=== PATIENT | female | born 1950 | race Caucasian/White ===

== ENCOUNTER 2018-10-10 06:16 | Inpatient (IN) ==
[2018-10-07 10:37] LABS: HEMATOCRIT 41.6 % (37.0-47.0); HEMOGLOBIN 13.2 g/dL (12.0-16.0); MCH 29.7 PG (27-31); MCHC 31.7 g/dL (33-37); MCV 93.5 FL (81-99); MPV 10.5 FL (7.4-10.4); RBC 4.45 XMIL (4.2-5.4); RDW 14.8 % (11.5-14.5); WBC 9.08 X1000 (4.8-10.8)
[2018-10-07 11:00] LABS: AGAP 14; BUN 13 mg/dL (8-22); CALCIUM 9.4 mg/dL (8.8-10.2); CHLORIDE 100 mmol/L (98-107); COSMO 288; CREATININE 0.7 mg/dL (0.5-0.9); ESTIMATED GFR > 60; GLUCOSE 151 mg/dL (70-104); POTASSIUM 4.3 mmol/L (3.5-5.1); SODIUM 143 mmol/L (136-145); TCO2 29 mmol/L (25-35)
[2018-10-10] MEDS ORDERED: LR 500 ML ONE (06:37)
[2018-10-10] MEDS ORDERED: KEFZOL 1 GM/D5W 1 GM/50 ML IVPB ONE (06:37)
[2018-10-10] MEDS ORDERED: DIPRIVAN 1% ONE ×2 (07:38→12:01)
[2018-10-10] MEDS ORDERED: ROBINUL ONE (07:59)
[2018-10-10] MEDS ORDERED: NEOSTIGMINE ONE (07:59)
[2018-10-10] MEDS ORDERED: SUFENTA ONE (08:49)
[2018-10-10] MEDS ORDERED: DECADRON ONE (09:18)
[2018-10-10] MEDS ORDERED: EPHEDRINE ONE (09:18)
[2018-10-10] MEDS ORDERED: ZOFRAN ONE (09:18)
[2018-10-10] MEDS ORDERED: NEO-SYNEPHRINE ONE (09:57)
[2018-10-10] MEDS: DILAUDID ONE ×4 (10:54→11:24)
--- NOTE | 2018-10-10 10:59 | OPERATIVE NOTE ---
PROCEDURE DATE: 10/10/2018 NAME OF PROCEDURE: Left modified radical mastectomy. SURGEON: Chuck Robertson MD. DYE CAN OPERATOR: Carlos Manuel Giordano RN. PREOPERATIVE DIAGNOSIS: Stage III cancer of the left breast. POSTOPERATIVE DIAGNOSIS: Stage III cancer of the left breast. INDICATIONS: A 67-year-old with a biopsy-proven carcinoma of the breast and palpable left axillary adenopathy. She desires modified mastectomy. DESCRIPTION OF PROCEDURE: After satisfactory general endotracheal anesthesia was achieved, the left arm was prepped into the field. We made an elliptical jam around the nipple areolar complex with an extension into the axilla. We incised the skin into the subcutaneous tissue, where we marked. We then used electrocautery to develop early superior and inferior flap. We then placed skin hooks superiorly and developed a superior flap to the clavicle. We then did skin hooks inferiorly, and developed a flap down to the rectus and serratus muscles. We then dissected from medial to lateral, taking the breast off the pectoralis major muscle. As we came to the edge of the pectoralis major, we went on the pectoralis minor. We then dissected the tissue, along the whole breadth of the pectoralis minor to be certain that we left no carmita tissue between the pectoralis major and pectoralis minor, the Seymour nodes. We then came to the edge of the pectoralis minor and into the axilla. We then identified the latissimus muscle laterally, and followed it from caudad to craniad until we reached the tendinous portion, we then identified the axillary vein laterally. We then dissected along the vein from lateral to medial. We dissected high into the axilla to get the level 3 nodes. We went as far medial as we could into the apex of the axilla to remove those nodes. We then dissected the branches of the vein inferiorly ligated with 3-0 silk ties and dividing it. We identified the thoracodorsal nerve, protected it from harm. We then dissected along the medial border of the serratus muscle. Palpable nodes were identified , and we dissected medial to them until we identified the long thoracic nerve. So at the very apex of the axilla, we clamped the tissue divided it, and swept the tissue from between the 2 nerves. We then dissected the tissue from the nerves until the thoracodorsal was identified, entering the latissimus, and the long thoracic was entering the serratus anterior muscles. The artery and vein to the latissimus was also preserved. All the carmita tissue including the palpable adenopathy was removed with the axillary contents. We then amputated the breast off the lateral chest wall. The specimen was handed off as left breast and axillary contents. Satisfactory hemostasis was achieved. We irrigated the chest wall and area of operation with warm saline. Again, hemostasis was satisfactory. We placed a Kale drain medially, bringing it out medially and placing it under the superior flap. The lateral drain went into the axilla. These were both secured to the skin with 2-0 silks. We then approximated the skin with brenda. Negative pressure was applied, thereby evacuating the space. Sterile dressings were applied. She tolerated it well. Was sent to the recovery room in satisfactory condition. ESTIMATED BLOOD LOSS: There was estimated to be 100 mL of blood loss. cc: Chuck Robertson MD MTDD
[2018-10-10] MEDS ORDERED: NORCO-10 ONE (11:40)
[2018-10-10] MEDS: LR 1,000 ML IV SCH (12:30)
[2018-10-10] MEDS ORDERED: ZOFRAN IV PRN (12:35)
[2018-10-10] MEDS: HUMALOG SUBQ SCH ×2 (14:11→16:52)
[2018-10-10] MEDS: NEURONTIN PO SCH ×3 (14:15→21:33)
[2018-10-10] MEDS: KEFZOL 1 GM/D5W 1 GM/50 ML IVPB IV SCH (15:37)
[2018-10-10] MEDS: NORCO-10 PO PRN ×2 (15:56→22:05)
[2018-10-10 20:07] LABS: URINE SOURCE CLEAN CATCH
[2018-10-10 20:11] LABS: BILIRUBIN URINE NEGATIVE (NEGATIVE); BLOOD URINE NEGATIVE (NEGATIVE); COLOR YELLOW; GLUCOSE URINE 300 mg/dL (NEGATIVE); KETONE URINE NEGATIVE (NEGATIVE); LEUKOCYTES URINE NEGATIVE (NEGATIVE); NITRITE URINE NEGATIVE (NEGATIVE); PH URINE 5.5; PROTEIN URINE 30 mg/dL (NEGATIVE); SP GRAVITY URINE 1.022; TURBIDITY URINE CLEAR (CLEAR); UR EPITHELIAL CELLS <10 /HPF (<10); URINE BACTERIA NEGATIVE /HPF; URINE RBC <10 /HPF (<10); URINE WBC <10 /HPF (<10); UROBILINOGEN URINE NORMAL (NORMAL)
--- NOTE | 2018-10-10 20:32 | GENERAL SURGERY PROGRESS NOTE ---
DATE: 10/10/2018 TIME: It is 4:30 in the afternoon. SUBJECTIVE: She is doing generally well. OBJECTIVE: Skin: She has a little hematoma under her superior flap. Vital signs: The blood pressure is a little bit high. PLAN: The plan will be to place an ice pack on her chest wall. We will check her hemoglobin in the morning and her other labs. Her pain relief seems to be adequate. cc: Chuck Robertson MD
[2018-10-10] MEDS: DILAUDID IV PRN (21:03)
[2018-10-10] MEDS ORDERED: INSULIN PEN NEEDLES ONE (21:30)
[2018-10-10] MEDS: COREG PO SCH (21:33)
[2018-10-10] MEDS: ANTIVERT PO SCH (21:33)
[2018-10-10] MEDS: LIPITOR PO SCH (21:33)
[2018-10-10] MEDS: PERIDEX MT SCH (21:33)
[2018-10-10] MEDS: LEVEMIR SUBQ SCH (21:57)
[2018-10-11] MEDS: KEFZOL 1 GM/D5W 1 GM/50 ML IVPB IV SCH (03:39)
[2018-10-11] MEDS: NORCO-10 PO PRN ×3 (03:44→21:46)
[2018-10-11] MEDS: LR 1,000 ML IV SCH ×2 (06:21→18:21)
[2018-10-11 06:36] LABS: BASO# 0.01 X1000 (0.0-0.2); BASO% 0.1 % (0.0-0.8); EOS# 0.01 X1000 (0.0-0.7); EOS% 0.1 % (0.0-10.0); HEMATOCRIT 34.8 % (37.0-47.0); LYMPH# 1.48 X1000 (1.2-3.4); LYMPH% 10.5 % (20.5-51.1); MCH 29.8 PG (27-31); MCHC 31.6 g/dL (33-37); MCV 94.3 FL (81-99); MONO# 0.76 X1000 (0.11-0.59); MONO% 5.4 % (1.7-9.3); MPV 11.1 FL (7.4-10.4); NEUT# 11.79 X1000 (1.4-6.5); NEUT% 83.9 % (42.2-75.2); PLT 212 X1000 (130-400); RBC 3.69 XMIL (4.2-5.4); RDW 14.3 % (11.5-14.5); WBC 14.05 X1000 (4.8-10.8)
[2018-10-11 06:41] LABS: AGAP 9; BUN 17 mg/dL (8-22); CALCIUM 8.8 mg/dL (8.8-10.2); CHLORIDE 99 mmol/L (98-107); COSMO 289; CREATININE 0.8 mg/dL (0.5-0.9); ESTIMATED GFR > 60; GLUCOSE 216 mg/dL (70-104); SODIUM 141 mmol/L (136-145); TCO2 33 mmol/L (25-35)
[2018-10-11] MEDS: DILAUDID IV PRN ×2 (07:48→23:10)
[2018-10-11] MEDS: PERIDEX MT SCH ×2 (09:01→21:44)
[2018-10-11] MEDS: WELLBUTRIN XL PO SCH (09:02)
[2018-10-11] MEDS: PRILOSEC PO SCH (09:02)
[2018-10-11] MEDS: ASPIRIN PO SCH (09:03)
[2018-10-11] MEDS: ANTIVERT PO SCH ×2 (09:05→21:42)
[2018-10-11] MEDS: NEURONTIN PO SCH ×4 (09:05→21:43)
[2018-10-11] MEDS: VITAMIN D PO SCH (09:05)
[2018-10-11] MEDS: FERROUS SULFATE PO SCH (09:06)
[2018-10-11] MEDS: KLOR-CON PO SCH (09:06)
[2018-10-11] MEDS: ZYLOPRIM PO SCH (09:06)
[2018-10-11] MEDS: LASIX PO SCH (09:06)
[2018-10-11] MEDS: VICON-C PO SCH (09:06)
[2018-10-11] MEDS: HUMALOG SUBQ SCH ×3 (09:07→18:06)
[2018-10-11] MEDS: COREG PO SCH ×2 (09:07→21:42)
[2018-10-11] MEDS: LIPITOR PO SCH (21:43)
[2018-10-11] MEDS: LEVEMIR SUBQ SCH (21:46)
--- NOTE | 2018-10-11 23:18 | GENERAL SURGERY PROGRESS NOTE ---
DATE: 10/11/2018 TIME: 1:15 p.m. SUBJECTIVE: Ms. Stinson is postop day 1 after left modified radical mastectomy. She is doing generally well. OBJECTIVE: She is afebrile, heart rate 68, blood pressure 138/47. The hematoma in the left superior flap is not changed. Her bandage is dry. She has had 117 mL out of drain #2, 70 out of drain #1. The drains appeared to be functioning satisfactorily. White count today 14,000, hemoglobin is 11, hematocrit 34.8. Chemistry is okay. Blood glucoses are satisfactory. PLAN: The plan will be to keep her until tomorrow and then discharge her tomorrow with her drains. She will return to see me on Sunday, the , and hopefully we will be able to remove her medial drain at that time. Dr. Oakley will be seeing her in the morning. I have discussed discharge plans with her and her niece. cc: Chuck Robertson MD
[2018-10-12] MEDS: NORCO-10 PO PRN (05:00)
[2018-10-12] MEDS: LR 1,000 ML IV SCH ×2 (05:01→08:35)
[2018-10-12] MEDS: DILAUDID IV PRN (06:13)
[2018-10-12 08:04] VITALS: BP 152/55
[2018-10-12] MEDS: KLOR-CON PO SCH (08:12)
[2018-10-12] MEDS: COREG PO SCH (08:13)
[2018-10-12] MEDS: VICON-C PO SCH (08:13)
[2018-10-12] MEDS: HUMALOG SUBQ SCH (08:13)
[2018-10-12] MEDS: LASIX PO SCH (08:13)
[2018-10-12] MEDS: PERIDEX MT SCH (08:13)
[2018-10-12] MEDS: NEURONTIN PO SCH (08:13)
[2018-10-12] MEDS: ANTIVERT PO SCH (08:13)
[2018-10-12] MEDS: ASPIRIN PO SCH (08:13)
[2018-10-12] MEDS: WELLBUTRIN XL PO SCH (08:13)
[2018-10-12] MEDS: VITAMIN D PO SCH (08:13)
[2018-10-12] MEDS: FERROUS SULFATE PO SCH (08:15)
[2018-10-12] MEDS: PRILOSEC PO SCH (08:15)
[2018-10-12] MEDS: ZYLOPRIM PO SCH (08:15)
--- NOTE | 2018-10-12 16:54 | GENERAL SURGERY PROGRESS NOTE ---
DATE: 10/12/2018 SUBJECTIVE: Doing well. Pain is well controlled. AMARI drain serosanguineous. No fever. No tachycardia overnight. OBJECTIVE: Vital signs: Blood pressure is 152/55. General: She is alert. Wounds are flat. There is no cellulitis. AMARI drains are serosanguineous with a modest amount of output. LABORATORY: Glucose 242. ASSESSMENT AND PLAN: 67-year-old female status post left modified radical mastectomy by Dr. Robertson. She is ready to go home. She was given a prescription for [place], Colace and Zofran. She has been educated on her drains. She will see Dr. Robertson in the office this week. cc: MD Chuck Tovar MD
== END 2018-10-12 12:00 | disposition home health service (06) | DRG 582 ==
LOC: OR 06:16 → 4N 06:16
PROVIDERS: ADMIT Surgery; ATTEND Surgery
CPT/HCPCS: 80048; 81001; 82948; 85025; 85027; 88309; 93005; 94761; 94799; A9270; J0690; J1100; J1170; J1815; J2370; J2405; J7120; XXXXX

== ENCOUNTER 2019-01-12 14:32 | Inpatient (IN) ==
[2019-01-12] MEDS ORDERED: ZOSYN 4.5 GM in NS 100 ML IV ONE ×2 (14:40→15:14)
[2019-01-12] MEDS ORDERED: VANCOMYCIN 1 GM/NS 1 GM/250 ML IVPB IV ONE ×3 (14:40→18:00)
[2019-01-12] MEDS ORDERED: NS 1,000 ML IV ONE ×2 (14:40→15:14)
[2019-01-12 14:46] LABS: ALLEN TEST YES; BE 8.9 mmoll (-3.0-3.0); BLOOD TYPE ARTERIAL; HCO3-(ACT) 31.9 mmoll (20.0-26.0); O2(CT) 14.2 mL/dL (15.0-23.0); O2HB 95.9 % (95.0-99.0); PCO2(98.6) 41 mmHg (35-45); PO2(98.6) 191 mmHg (60-100); SAMPLE BLOOD; SAO2 97.8 % (95.0-100.0); THB 10.2 g/dL (11.5-17.4); pH(98.6) 7.51 (7.35-7.45)
[2019-01-12 14:48] LABS: MODALITY NRB
--- NOTE | 2019-01-12 15:14 | Diag Imaging Result Doc PS360 ---
EXAM: CT HEAD W/O CONTRAST INDICATION: AMS, breast ca TECHNIQUE: This exam was performed using automated exposure control, adjustment of mA or kV according to patient size, and/or use of iterative reconstruction technique. COMPARISON: 07/31/2016 FINDINGS: There is patchy low attenuation in the periventricular and subcortical white matter suggesting moderate microangiopathy. It appears to have worsened at least somewhat during the interval. There is a stable small chronic lacunar infarct associated with the head of the caudate on the right. There is no definite acute infarct given the limited sensitivity of CT versus MRI. There is no discrete intracranial mass, mass effect, or intracranial hemorrhage. The surrounding soft tissues and bony structures are essentially unremarkable. IMPRESSION: Suggestion of moderate white matter microangiopathy that appears somewhat worse than the previous study in 2016. No definite acute intracranial pathology by CT. Electronically signed by Mason Malik 01/12/2019 3:12 PM
[2019-01-12] MEDS ORDERED: TYLENOL PO ONE (15:15)
--- NOTE | 2019-01-12 15:16 | Diag Imaging Result Doc PS360 ---
EXAM: CHEST-PORTABLE INDICATION: AMS< breast CA TECHNIQUE: One view COMPARISON: 07/24/2018 FINDINGS: There has been interval placement of a right chest port. The tip projecting over the lower SVC in the expected position. There are mild interstitial infiltrates bilaterally, mainly in the perihilar regions. This probably represents mild interstitial edema. There is no discrete pleural fluid collection or pneumothorax. There are stable CABG changes and cardiomegaly. IMPRESSION: Cardiomegaly and interstitial markings suggesting mild edema. Electronically signed by Mason Malik 01/12/2019 3:14 PM
[2019-01-12 15:49] LABS: BASO# 0.03 X1000 (0.0-0.2); BASO% 0.2 % (0.0-0.8); EOS# 0.14 X1000 (0.0-0.7); HEMATOCRIT 30.6 % (37.0-47.0); HEMOGLOBIN 9.4 g/dL (12.0-16.0); IMM GRAN# 0.06 X1000 (0.0-0.04); IMM GRAN% 0.4 % (0.0-0.5); LYMPH# 1.14 X1000 (1.2-3.4); LYMPH% 8.4 % (20.5-51.1); MCH 29.4 PG (27-31); MCHC 30.7 g/dL (33-37); MCV 95.6 FL (81-99); MONO# 1.17 X1000 (0.11-0.59); MONO% 8.6 % (1.7-9.3); MPV 9.3 FL (7.4-10.4); NEUT# 11.08 X1000 (1.4-6.5); NEUT% 81.4 % (42.2-75.2); PLT 398 X1000 (130-400); RDW 16.3 % (11.5-14.5); WBC 13.62 X1000 (4.8-10.8)
[2019-01-12 16:04] LABS: URINE SOURCE CATH
[2019-01-12 16:13] LABS: BILIRUBIN URINE NEGATIVE (NEGATIVE); BLOOD URINE NEGATIVE (NEGATIVE); COLOR YELLOW; GLUCOSE URINE NEGATIVE (NEGATIVE); KETONE URINE NEGATIVE (NEGATIVE); LEUKOCYTES URINE NEGATIVE (NEGATIVE); NITRITE URINE NEGATIVE (NEGATIVE); PROTEIN URINE TRACE mg/dL (NEGATIVE); SP GRAVITY URINE 1.011; TURBIDITY URINE CLEAR (CLEAR); UROBILINOGEN URINE NORMAL (NORMAL)
[2019-01-12 16:14] LABS: UR EPITHELIAL CELLS <10 /HPF (<10); URINE BACTERIA NEGATIVE /HPF; URINE RBC <10 /HPF (<10); URINE WBC <10 /HPF (<10)
[2019-01-12 16:16] LABS: AGAP 13; ALB/GLOB RATIO 1.1; ALBUMIN 3.1 g/dL (3.5-5.0); ALKALINE PHOSPHATASE 95 U/L (32-104); BUN 16 mg/dL (8-22); CALCIUM 8.5 mg/dL (8.8-10.2); CHLORIDE 99 mmol/L (98-107); COSMO 280; CREATININE 0.9 mg/dL (0.5-0.9); ESTIMATED GFR > 60; GLUCOSE 83 mg/dL (70-104); GOT 19 U/L (10-30); GPT 18 U/L (10-36); MAGNESIUM 1.9 mg/dL (1.5-2.7); POTASSIUM 4.7 mmol/L (3.5-5.1); SODIUM 140 mmol/L (136-145); TCO2 28 mmol/L (25-35); TOTAL BILIRUBIN 0.37 mg/dL (0.20-1.00)
[2019-01-12 16:23] LABS: INR 1.02; PROTIME 14.2 Seconds (11.0-16.0)
[2019-01-12 16:24] LABS: PTT 42.5 Seconds (22.3-41.8)
[2019-01-12 16:25] LABS: UR AMPHETAMINES QUAL NONE DETECTED (NONE DETECT); UR BARBITUATES QUAL NONE DETECTED (NONE DETECT); UR BENZODIAZEPIN QUAL NONE DETECTED (NONE DETECT); UR CANNABINOIDS QUAL NONE DETECTED (NONE DETECT); UR COCAINE QUAL NONE DETECTED (NONE DETECT); UR METHADONE QUAL NONE DETECTED (NONE DETECT); UR OPIATES QUAL PRESUMPTIVE POSITIVE (NONE DETECT); UR OXYCODONE QUAL PRESUMPTIVE POSITIVE (NONE DETECT); UR PCP QUAL NONE DETECTED (NONE DETECT)
--- NOTE | 2019-01-12 16:40 | PROVIDER DOCUMENTATION ---
This chart was entered by Jennifer Duran Scribe, acting as scribe for Tirso Waller MD. HPI-Respiratory General - General Chief Complaint: Shortness of Breath Stated Complaint: RESP DISTRESS Time Seen by Provider: 01/12/19 14:37 Source: patient, EMS Allergies/Adverse Reactions: Patient Allergies Allergy/AdvReac Type Severity Reaction Status Date / Time morphine Allergy Mild rash, Verified 01/12/19 15:01 swelling levofloxacin [From Levaquin] Allergy Unknown Verified 01/12/19 15:01 Home Medications: Home Medication List Medication Instructions Recorded Confirmed Last Taken Type ATORVAstatin [Lipitor] 40 mg PO QHS 07/29/13 01/12/19 11/18/18 22:00 History Allopurinol [Zyloprim] 300 mg PO QHS 07/29/13 01/12/19 11/18/18 22:00 History Bupropion HCl [Bupropion Xl] 300 mg PO QAM 07/29/13 01/12/19 11/18/18 08:00 History Cilostazol [Pletal] 100 mg PO BID 07/29/13 01/12/19 11/18/18 22:00 History Ferrous Sulfate [Iron] 325 mg PO QAM 07/29/13 01/12/19 11/18/18 22:00 History Insulin Aspart [Novolog] 15 unit SQ TID 07/29/13 01/12/19 11/18/18 22:00 History 15 units Insulin Detemir [Levemir] 25 unit SUBQ QHS 07/29/13 01/12/19 11/18/18 22:00 History 30 units Omeprazole [Prilosec] 40 mg PO QAM 07/29/13 01/12/19 11/19/18 05:30 History Cholecalciferol (Vitamin D3) 2,000 unit PO QAM 09/16/15 01/12/19 11/18/18 08:00 History [Vitamin D3] Gabapentin [Neurontin] 800 mg PO 4XDAY 09/16/15 01/12/19 11/18/18 22:00 History Aspirin 81 mg PO QAM 07/31/16 01/12/19 11/18/18 22:00 History Carvedilol [Coreg] 12.5 mg PO BID 07/24/18 01/12/19 11/19/18 05:30 History Folic Acid/Vit B Complex and C 400 mcg PO DAILY 07/24/18 01/12/19 11/18/18 08:00 History [Eql Super B Complex Tablet] Furosemide [Lasix] 40 mg PO DAILY 07/24/18 01/12/19 11/18/18 08:00 History Meclizine [Antivert] 12.5 mg PO BID 07/24/18 01/12/19 11/18/18 22:00 History Oxycodone/APAP 10 mg/325 mg 1 each PO TID 07/24/18 01/12/19 11/19/18 05:30 History [Percocet-10] Potassium Chloride E.r. [Klor-Con] 10 meq PO BID 10/07/18 01/12/19 11/18/18 08:00 History Cephalexin [Keflex] 500 mg PO 4XDAY 01/12/19 01/12/19 Unknown History Ondansetron HCl [Zofran] 4 mg PO Q8H PRN 01/12/19 01/12/19 Unknown History - History of Present Illness-Resp Nature of Presenting Problem: 68 y/o female presents to ED in respiratory distress onset just prior to arrival. EMS reports they received a call for AMS, lethargy, and possible stroke. EMS states O2 sats were in the 40s upon their arrival at the scene. Pt has hx breast cancer and is currently being treated by Dr. Robertson for ulcers on L foot. Pt is alert and oriented. Quality of Pain: reports: none Severity in ED: reports: severe Onset/Duration: reports: just prior to arrival Timing: reports: still present, improving Context: reports: other Exposure: reports: unknown cause Cough Quality/Degree: reports: no cough Episode Frequency: no prior episodes Current Respiratory Medication Therapy: Initiated see nurses note Modifying Factors: improves with: nothing Associated Symptoms: reports: shortness of breath, short of breath, other (respiratory distress; AMS; lethargic) Similar Symptoms Previously?: No Recently seen or treated by another doctor?: No Review of Systems - Adult - REVIEW OF SYSTEMS - ADULT Constitutional: reports: other (AMS; lethargic). denies: chills, fever Eyes: reports: no symptoms reported Ears, Nose, Mouth & Throat: reports: no symptoms reported Cardiovascular: denies: chest pain, palpitations Respiratory: reports: shortness of breath, other (respiratory distress). denies: cough Gastrointestinal: denies: abdominal pain, diarrhea, nausea, vomiting Genitourinary: reports: no symptoms reported Musculoskeletal: denies: back pain, joint pain Integumentary: reports: no symptoms reported Neurological: reports: other (AMS). denies: dizziness/vertigo, seizure Psychiatric: reports: no symptoms reported Endocrine: reports: no symptoms reported Hematologic/Lymphatic: reports: no symptoms reported Allergic/Immunologic: reports: no symptoms reported All Other Systems: Reviewed and Negative Past History - Adult - PAST MEDICAL HISTORY-ADULT Review of Records: reports: Old Records Reviewed, Nursing Assessment Review, Medications Reviewed Major Childhood Illnesses: reports: denies history Cardiovascular: reports: HTN Respiratory: reports: denies history Gastrointestinal: reports: denies history Obstetrical/Gynecological: reports: denies history, other (breast cancer) Genitourinary: reports: denies history Musculoskeletal: reports: denies history Neurological: reports: denies history Psychiatric: reports: depression Endocrine/Immune: reports: Diabetes Other Conditions: reports: denies history, MRSA - PRIOR SURGERIES/PROCEDURES Surgical/Procedure History: reports: other (aortic valve replacement) - IMMUNIZATION STATUS Childhood Immunizations: See Nurse Assessment Flu Vaccine: See Nurse Assessment - FAMILY HISTORY Family History: reviewed, not pertinent - SOCIAL HISTORY Smoking: quit greater than 1 year Substance Use: none/never Alcohol Use Frequency: never Living Situation: family Physical Exam-General - PHYSICAL EXAM-ADULT Initial Vital Signs Reviewed: Yes - CONSTITUTIONAL General Appearance: alert, moderate distress, other (ill-appearing) - EYES Eyes: PERRL/EOMI, pink conjunctivae - HEAD, EARS, NOSE, MOUTH & THROAT HENMT: normocephalic/atraumatic, moist mucous membranes, normal ENT inspection, other (alopecia) - NECK Neck: non-tender, full range of motion - RESPIRATORY Respiratory: chest non-tender, normal breath sounds, rhonchi (scattered), increased rate, other (port to R upper chest) - CARDIOVASCULAR Cardiovascular: tachycardia, systolic murmur (1/6), other (metallic click at apex) - GASTROINTESTINAL (ABDOMEN) Abdominal Exam: normal bowel sounds, non tender, soft, distended - MUSCULOSKELETAL Back Exam: normal inspection, no CVA tenderness Extremity: normal range of motion, non-tender, normal gait, swelling (2-3+ pitting edema of bilateral lower extremities), other (multiple open, necrotic wounds to interphalangeal joints of L foot; stage 2 pressure ulcer with yellow drainage to L medial heel). negative: pulse deficit - SKIN Integumentary: warm/dry, pallor, other (multiple open, necrotic wounds to interphalangeal joints of L foot; chronic stasis changes of the skin; stage 2 pressure ulcer with yellow drainage to L medial heel) - NEUROLOGIC Neurologic: grossly normal, motor weakness (RUE) - PSYCHIATRIC Psych/Mental Status: normal mood/affect, normal thought content, normal thought process - HEART Score HEART Score: History: Slightly Suspicious HEART Score: ECG: Normal HEART Score: Age: > or = 65 Years HEART Score: Risk Factors for Atherosclerotic Disease: 1 or 2 Risk Factors HEART Score: Troponin: < or = Normal Limit Total HEART Score:: 3 Progress - PLAN OF CARE/RESULTS Progress/Plan/Lab Results: Vital Signs - 8 hr 01/12/19 14:35 01/12/19 14:45 01/12/19 14:55 Temperature 103.1 F H Pulse Rate 97 H 116 H Respiratory Rate 26 H Blood Pressure 167/70 167/70 O2 Sat by Pulse Oximetry 100 80 L 01/12/19 15:10 01/12/19 15:30 01/12/19 15:34 Temperature Pulse Rate 96 H 96 H 96 H Respiratory Rate Blood Pressure 155/64 O2 Sat by Pulse Oximetry 97 93 L 01/12/19 16:00 Temperature Pulse Rate 93 H Respiratory Rate Blood Pressure O2 Sat by Pulse Oximetry Laboratory Results - last 24 hr 01/12/19 01/12/19 01/12/19 14:38 15:20 15:20 WBC 13.62 H RBC 3.20 L Hgb 9.4 L Hct 30.6 L MCV 95.6 MCH 29.4 MCHC 30.7 L RDW Std Deviation 16.3 H Plt Count 398 MPV 9.3 Immature Gran % (Auto) 0.4 Neut % (Auto) 81.4 H Lymph % (Auto) 8.4 L [place] % (Auto) 8.6 Eos % (Auto) 1.0 Baso % (Auto) 0.2 Immature Gran # (Auto) 0.06 H Neut # (Auto) 11.08 H Lymph # (Auto) 1.14 L [place] # (Auto) 1.17 H Eos # (Auto) 0.14 Baso # (Auto) 0.03 PT INR PTT (Actin FS) Specimen Type ARTERIAL Sample Site R RADIAL pH 7.51 H pCO2 41 pO2 191 H HCO3 31.9 H Base Excess 8.9 H Oxyhemoglobin 95.9 ABG O2 Sat (Calculated) 14.2 L ABG O2 Saturation 97.8 ABG Carboxyhemoglobin 0.90 ABG Methemoglobin 1.0 Erasto Test YES A-a O2 Difference 471.0 Total Hemoglobin 10.2 L Lactate 0.90 Liter Flow 15.0 Blood Gas Modality NRB FiO2 % 100.0 Sodium Potassium Chloride Carbon Dioxide Anion Gap BUN Creatinine Estimated GFR/1.73 m2 BUN/Creatinine Ratio Glucose Calculated Osmolality Calcium Magnesium Total Bilirubin AST ALT Alkaline Phosphatase Ammonia 19 Troponin T [id number]-Agmormclppl Pept Total Protein Albumin Globulin Albumin/Globulin Ratio Plasma Lactate TSH Urine Source Urine Color Urine Turbidity Urine pH Ur Specific [place] Urine Protein Ur Glucose (Stick) Ur Ketones (Stick) Urine Blood Urine Nitrite Urine Bilirubin Urobilinogen Dipstick Urine Leukocytes Urine WBC (Auto) Urine RBC (Auto) U Epithel Cells (Auto) Urine Bacteria (Auto) Urine Opiates Screen Ur Oxycodone Screen Ur Methadone, Qual Ur Barbiturates Screen Ur Phencyclidine Scrn Ur Amphetamines Screen U Benzodiazepines Scrn Urine Cocaine Screen U Cannabinoids Screen Blood Type Antibody Screen 01/12/19 01/12/19 01/12/19 15:20 15:20 15:20 WBC RBC Hgb Hct MCV MCH MCHC RDW Std Deviation Plt Count MPV Immature Gran % (Auto) Neut % (Auto) Lymph % (Auto) [place] % (Auto) Eos % (Auto) Baso % (Auto) Immature Gran # (Auto) Neut # (Auto) Lymph # (Auto) [place] # (Auto) Eos # (Auto) Baso # (Auto) PT INR PTT (Actin FS) Specimen Type Sample Site pH pCO2 pO2 HCO3 Base Excess Oxyhemoglobin ABG O2 Sat (Calculated) ABG O2 Saturation ABG Carboxyhemoglobin ABG Methemoglobin Erasto Test A-a O2 Difference Total Hemoglobin Lactate Liter Flow Blood Gas Modality FiO2 % Sodium 140 Potassium 4.7 Chloride 99 Carbon Dioxide 28 Anion Gap 13 BUN 16 Creatinine 0.9 Estimated GFR/1.73 m2 > 60 BUN/Creatinine Ratio 18 Glucose 83 Calculated Osmolality 280 Calcium 8.5 L Magnesium 1.9 Total Bilirubin 0.37 AST 19 ALT 18 Alkaline Phosphatase 95 Ammonia Troponin T [id number]-Ktjcxodwijx Pept 1454 H Total Protein 6.0 L Albumin 3.1 L Globulin 2.9 Albumin/Globulin Ratio 1.1 Plasma Lactate 1.1 TSH Urine Source Urine Color Urine Turbidity Urine pH Ur Specific [place] Urine Protein Ur Glucose (Stick) Ur Ketones (Stick) Urine Blood Urine Nitrite Urine Bilirubin Urobilinogen Dipstick Urine Leukocytes Urine WBC (Auto) Urine RBC (Auto) U Epithel Cells (Auto) Urine Bacteria (Auto) Urine Opiates Screen Ur Oxycodone Screen Ur Methadone, Qual Ur Barbiturates Screen Ur Phencyclidine Scrn Ur Amphetamines Screen U Benzodiazepines Scrn Urine Cocaine Screen U Cannabinoids Screen Blood Type Antibody Screen 01/12/19 01/12/19 01/12/19 15:20 15:20 15:20 WBC RBC Hgb Hct MCV MCH MCHC RDW Std Deviation Plt Count MPV Immature Gran % (Auto) Neut % (Auto) Lymph % (Auto) [place] % (Auto) Eos % (Auto) Baso % (Auto) Immature Gran # (Auto) Neut # (Auto) Lymph # (Auto) [place] # (Auto) Eos # (Auto) Baso # (Auto) PT 14.2 INR 1.02 PTT (Actin FS) 42.5 H Specimen Type Sample Site pH pCO2 pO2 HCO3 Base Excess Oxyhemoglobin ABG O2 Sat (Calculated) ABG O2 Saturation ABG Carboxyhemoglobin ABG Methemoglobin [place] Test A-a O2 Difference Total Hemoglobin Lactate Liter Flow Blood Gas Modality FiO2 % Sodium Potassium Chloride Carbon Dioxide Anion Gap BUN Creatinine Estimated GFR/1.73 m2 BUN/Creatinine Ratio Glucose Calculated Osmolality Calcium Magnesium Total Bilirubin AST ALT Alkaline Phosphatase Ammonia Troponin T < 0.010 [id number]-P-Llxutdbuwvm Pept Total Protein Albumin Globulin Albumin/Globulin Ratio Plasma Lactate TSH 0.74 Urine Source Urine Color Urine Turbidity Urine pH Ur Specific [place] Urine Protein Ur Glucose (Stick) Ur Ketones (Stick) Urine Blood Urine Nitrite Urine Bilirubin Urobilinogen Dipstick Urine Leukocytes Urine WBC (Auto) Urine RBC (Auto) U Epithel Cells (Auto) Urine Bacteria (Auto) Urine Opiates Screen Ur Oxycodone Screen Ur Methadone, Qual Ur Barbiturates Screen Ur Phencyclidine Scrn Ur Amphetamines Screen U Benzodiazepines Scrn Urine Cocaine Screen U Cannabinoids Screen Blood Type Antibody Screen 01/12/19 01/12/19 01/12/19 15:20 15:40 15:40 WBC RBC Hgb Hct MCV MCH MCHC RDW Std Deviation Plt Count MPV Immature Gran % (Auto) Neut % (Auto) Lymph % (Auto) [place] % (Auto) Eos % (Auto) Baso % (Auto) Immature Gran # (Auto) Neut # (Auto) Lymph # (Auto) [place] # (Auto) Eos # (Auto) Baso # (Auto) PT INR PTT (Actin FS) Specimen Type Sample Site pH pCO2 pO2 HCO3 Base Excess Oxyhemoglobin ABG O2 Sat (Calculated) ABG O2 Saturation ABG Carboxyhemoglobin ABG Methemoglobin [place]asto Test A-a O2 Difference Total Hemoglobin Lactate Liter Flow Blood Gas Modality FiO2 % Sodium Potassium Chloride Carbon Dioxide Anion Gap BUN Creatinine Estimated GFR/1.73 m2 BUN/Creatinine Ratio Glucose Calculated Osmolality Calcium Magnesium Total Bilirubin AST ALT Alkaline Phosphatase Ammonia Troponin T Phb-[id number]-Vzmxpbvubmj Pept Total Protein Albumin Globulin Albumin/Globulin Ratio Plasma Lactate TSH Urine Source CATH Urine Color YELLOW Urine Turbidity CLEAR Urine pH 5.0 Ur Specific [place] 1.011 Urine Protein TRACE A Ur Glucose (Stick) NEGATIVE Ur Ketones (Stick) NEGATIVE Urine Blood NEGATIVE Urine Nitrite NEGATIVE Urine Bilirubin NEGATIVE Urobilinogen Dipstick NORMAL Urine Leukocytes NEGATIVE Urine WBC (Auto) <10 Urine RBC (Auto) <10 U Epithel Cells (Auto) <10 Urine Bacteria (Auto) NEGATIVE Urine Opiates Screen PRESUMPTIVE POSITIVE A Ur Oxycodone Screen PRESUMPTIVE POSITIVE A Ur Methadone, Qual NONE DETECTED Ur Barbiturates Screen NONE DETECTED Ur Phencyclidine Scrn NONE DETECTED Ur Amphetamines Screen NONE DETECTED U Benzodiazepines Scrn NONE DETECTED Urine Cocaine Screen NONE DETECTED U Cannabinoids Screen NONE DETECTED Blood Type O NEGATIVE Antibody Screen NEGATIVE Orders Category Date Time Status Finger Stick Blood Sugar (ED) DIRECTED Care 01/12/19 14:38 Active [place] Insertion ORDERED Care 01/12/19 14:38 Active Nursing- Obtain EKG once Care 01/12/19 14:38 Active OK to use Port-A-Cath ORDERED Care 01/12/19 14:40 Active Saline Loc NOW Care 01/12/19 14:38 Active CHEST-PORTABLE [RAD] Stat Exams 01/12/19 14:[address] HEAD W/O CONTRAST [CT] Stat Exams 01/12/19 14:39 Completed ABG [RESP] Routine Lab 01/12/19 14:38 Completed AMMONIA [CHEM] Stat Lab 01/12/19 15:20 Completed BLOOD CULTURE [BLDCUL] Stat Lab 01/12/19 15:29 Results CBC WITH ELECTRONIC DIFF [HEME] Stat Lab 01/12/19 15:20 Completed COMPREHENSIVE METABOLIC PANEL [CHEM] Stat Lab 01/12/19 15:20 Completed LACTATE, PLASMA [CHEM] Stat Lab 01/12/19 15:20 Completed MAGNESIUM [CHEM] Stat Lab 01/12/19 15:20 Completed PRO B-NATRIURETIC PEPTIDE Stat Lab 01/12/19 15:20 Completed PROTIME WITH INR [COAG] Stat Lab 01/12/19 15:20 Completed PTT [COAG] Stat Lab 01/12/19 15:20 Completed TROPONIN T Stat Lab 01/12/19 15:20 Completed TSH Stat Lab 01/12/19 15:20 Completed TYPE & SCREEN [BBK] Stat Lab 01/12/19 15:20 Completed URINALYSIS W/POSS RFLX CULT [URINALYSIS] Stat Lab 01/12/19 15:40 Completed URINE DRUG SCREEN Stat Lab 01/12/19 15:40 Completed 0.9% Sodium Chloride Inj [Ns] 1,000 ml Med 01/12/19 14:40 Discontinued IV 999 mls/hr 0.9% Sodium Chloride Inj [Ns] 1,000 ml Med 01/12/19 15:14 Discontinued IV 999 mls/hr Acetaminophen [Tylenol] Med 01/12/19 15:15 Discontinued 1,000 mg PO NOW ONE Piperacillin/Tazobactam [Zosyn] 4.5 gm Med 01/12/19 14:40 Discontinued 0.9% Sodium Chloride Inj [Ns] 100 ml IV NOW Piperacillin/Tazobactam [Zosyn] 4.5 gm Med 01/12/19 15:14 Discontinued 0.9% Sodium Chloride Inj [Ns] 100 ml IV NOW Vancomycin 1 gm/Ns Med 01/12/19 14:40 Discontinued 1 gm in 250 ml IV NOW Vancomycin 1 gm/Ns Med 01/12/19 15:14 Discontinued 1 gm in 250 ml IV NOW EKG [EKG] Stat Ther 01/12/19 14:38 Ordered Result Diagrams: 01/12/19 15:20 01/12/19 15:20 - REASSESSMENT Reassessment #1 Time Reassessed: 16:37 Status: improving (Better after IVF resuscitation. Patient has severe sepsis, but normal lactate and no signs of shock. Sepsis may be due to PNE or Cellulitis/Gangrene of foot. Will give IV Zosyn and Vanco. Family at bedside now, labs/CT/CXR results shared and they understand and agree with disposition for admission) - EKG 1 Time of EKG reading by physician:: 14:44 EKG Read and Signed by:: Tirso Waller EKG Interpretation (*Must complete 3 of following elements*): Abnormal Rate: 96 Rhythm: NSR Spring: normal QRS: other (inferior infarct) [place] Interval: normal ST Wave: normal Comments: Artifact present. -Dr. Waller - XRAY 1 XRAY Study: Chest Impression: Abnormal (FINDINGS: There has been interval placement of a right chest port. The tip projecting over the lower SVC in the expected position. There are mild interstitial infiltrates bilaterally, mainly in the perihilar regions. This probably represents mild interstitial edema. There is no discrete pleural fluid collection or pneumothorax. There are stable CABG changes and cardiomegaly. IMPRESSION: Cardiomegaly and interstitial markings suggesting mild edema. Electronically signed by Mason Malik 01/12/2019 3:14 PM) - CT/MRI 1 CT Study: Head Impression: Normal (FINDINGS: There is patchy low attenuation in the periventricular and subcortical white matter suggesting moderate microangiopathy. It appears to have worsened at least somewhat during the interval. There is a stable small chronic lacunar infarct associated with the head of the caudate on the right. There is no definite acute infarct given the limited sensitivity of CT versus MRI. There is no discrete intracranial mass, mass effect, or intracranial hemorrhage. The surrounding soft tissues and bony structures are essentially unremarkable. IMPRESSION: Suggestion of moderate white matter microangiopathy that appears somewhat worse than the previous study in 2016. No definite acute intracranial pathology by CT. Electronically signed by Mason Malik 01/12/2019 3:12 PM) - CONSULTS/PCP/HOSPITALIST Notification #1 *Consult/PCP/Hospitalist*: MARGY Rubi for Dr. Eller, hospitalist Time Discussed: 16:32 Reason/Comments: Severe sepsis; AMS; Cellulitis and gangrene of L foot Consult Disposition: Admit Departure - Departure Date of Disposition Decision: 01/12/19 Time of Disposition Decision: 16:33 DIAGNOSIS: Severe sepsis, Gangrene of left foot, Cellulitis of foot, left, Metastatic breast cancer, On antineoplastic chemotherapy Altered mental status Qualifiers: Altered mental status type: unspecified Qualified Code(s): R41.82 - Altered mental status, unspecified Disposition: ADMITTED INPATIENT 09 Certified Medical Emergency: Emergent Condition: Fair Additional Freetext Instructions: ED Follow Up Instructions: You have been treated by a care provider in the Emergency Department. These instructions are being provided to you so you can have an understanding of how to care for yourself upon discharge. Upon discharge from the Emergency Department, you are responsible for making arrangements for follow-up care by a physician of your choice. Take all prescribed medications as directed. Return to the Emergency Department immediately for any new or worsening symptoms. You may call the Physician Referral phone number at [phone] to obtain a list of Physicians who are taking new patients. Referrals and Follow-Ups: Jay Arias MD [Primary Care Provider] - - Critical Care Note This patient required my direct & personal management of CC.: Yes Total Time (mins): 45 Critical Care Statement: This patient required my direct personal management to treat or rule out processes, the absence of which, could potentiallly result in sudden, clinically significant life or limb threatening deterioration. Attestation - Physician/ [place] Attestation Patient care was provided by Advanced Practice Provider:: No The physician spent face to face time with patient:: Yes Advanced Practice Provider documentation review:: Supervising physician onsite and consulted in the evaluation and care of this patient. The physician did have a face to face encounter with the patient. This chart was documented by the indicated scribe, (Jennifer Duran Scribe) and accurately reflects the services I performed and decisions made by me, Tirso Waller MD, as attested by the provider's signature.
[2019-01-12] MEDS ORDERED: VANCOMYCIN IV PER PHARMACY MISC SCH (17:15)
[2019-01-12] MEDS ORDERED: DUONEB (A & A) INH PRN (17:36)
--- NOTE | 2019-01-12 18:36 | HISTORY AND PHYSICAL ---
PRIMARY CARE PHYSICIAN: Dr. Arias. Her general surgeon is Dr. Chuck Robertson, oncologist is Joseline Escobar. CHIEF COMPLAINT: Unresponsive, respiratory distress. HPI: This is a 68-year-old female with a history of diabetes mellitus, metastatic breast cancer, hypertension, who presents to the emergency room via EMS after being found sitting up in a chair not responding by family members. EMS was called and reportedly on their arrival she was noted to have O2 saturations in the 40s. The patient does use oxygen at night. She stated she was not wearing oxygen at the time. The patient stated that over the last week she has felt a little more short of breath than normal with just generalized weakness. She has had body aches and chills consistent with a fever. She has had chills and body aches. She thought she might be febrile although she opted not to tell anyone knowing they would make her come to the hospital. She has had a little bit more of a cough although it has been nonproductive. The patient has bilateral ulcers to bilateral feet with the left having multiple necrotic wounds around her toes. She has a pressure ulcer to the left medial heel. She does have signs of chronic stasis to bilateral lower extremities for which she is seeing Dr. Chuck Robertson and is currently on Keflex. PAST MEDICAL HISTORY: 1. Metastatic breast cancer. 2. Hypertension. 3. Coronary artery disease. 4. Aortic valve replacement. 5. Diabetes mellitus type 2 insulin-dependent. 6. Dyslipidemia. 7. Peripheral vascular disease. 8. Systolic heart failure. PAST SURGICAL HISTORY: Cholecystectomy, hysterectomy, aortic valve replacement, coronary artery bypass graft, bilateral endarterectomy. SOCIAL HISTORY: She denies any alcohol, tobacco, or illicit drug use. ALLERGIES: Morphine and Levaquin. HOME MEDICATIONS: A list will be obtained by the nursing staff and once reviewed will restart as appropriate. REVIEW OF SYSTEMS: Discussed with the patient with pertinent positives stated in the HPI. She denied any syncope or dizziness, any chest pain, palpitations, a productive cough, any nausea, vomiting, diarrhea, constipation, black or bloody vomitus or stools, hematuria, dysuria, frequency, urgency. PHYSICAL EXAMINATION: GENERAL: This is a 68-year-old female who is lying in the bed in no distress. VITAL SIGNS: Blood pressure is 121/57 with heart rate of 93, respirations are 20, temperature is 101.1 degrees with O2 saturations that are now 97 to 93 percent on 3 L nasal cannula. HEENT: Head is normocephalic, atraumatic. Mucous membranes are moist. NECK: Supple. Trachea midline. CARDIOVASCULAR: She is tachycardic. Regular rate and rhythm. S1, S2 appreciated. She does have a 1/6 systolic murmur. She has metallic click can be heard of the aortic valve replacement. She does have bilateral lower extremity edema. PULMONARY: Breath sounds with scattered rhonchi and expiratory wheezes. Chest rises and fall symmetric respiration. She does have a port that is accessed to right upper chest. GASTROINTESTINAL: Abdomen soft, nontender, nondistended. Bowel sounds in all 4 quadrants. NEUROLOGIC: She is alert, oriented. SKIN: Warm and dry. She does have signs of venous stasis bilateral lower extremities. She does have a pressure ulcer to her left medial heel with necrotic wounds noted to interphalangeal joints of her left foot. LABS: WBC is 13.6 with hemoglobin 9.4, hematocrit 30.6 and platelets of 398,000. Sodium is 140, potassium 4.7, BUN 16, creatinine 0.9 with a glucose of 83. Urinalysis is essentially negative. Urine drug screen is presumptive positive for opiates and oxycodone. Blood cultures are pending. CT of the head revealed suggestion of moderate white matter microangiopathy that appears somewhat worse than study in 2016. No acute intracranial pathology. Chest x-ray revealed cardiomegaly and interstitial markings suggesting mild edema. ASSESSMENT AND PLAN: This is a 68-year-old female who is lying on the bed in the emergency room in no distress. 1. Sepsis. The patient received a fluid bolus in the emergency room. Blood cultures were obtained. She was given vancomycin and Zosyn. Will continue these dose per pharmacy. 2. Ulcers bilateral feet. The patient is followed by Dr. Robertson. We will consult him in the morning. We will continue with antibiotics as stated above. We will obtain a culture from her left heel as it is draining. Will consult wound therapy. 3. Acute hypoxemic respiratory failure. Supplemental oxygen, DuoNeb q.6 hours scheduled with q.2 hours p.r.n., antibiotics as stated. 4. Diabetes mellitus. Place on pattern blood glucose with sliding scale insulin. 5. History of hypertension. Identify her home medications and continue as appropriate. 6. History of metastatic breast cancer. 7. History of coronary artery disease aware. Continue medications. 8. Further treatments pending hospital course. Patient seen and examined by me face to face, all the laboratory, vitals signs and images were reviewed, patient presented to the emergency department with signs of sepsis, she has been seen by surgery department as an outpatient, she has bilateral feet ulcer that look infected and some necrotic areas, blood sugar looks fine, but will get an HbA1c, we will consult surgery, antibiotics, pain treatment, I agree with the SWITCH OPERATOR's assessment and plan, Lazaro Guzman MD. Dictated by MARGY Arias for Lazaro Frazier MD cc: MARGY Arias MD MTDD
[2019-01-12] MEDS ORDERED: PLETAL PO SCH (21:00)
[2019-01-12] MEDS: PERCOCET-10 PO PRN (21:50)
[2019-01-12] MEDS: ZYLOPRIM PO SCH (21:50)
[2019-01-12] MEDS: ZOSYN 4.5 GM in NS 100 ML IV SCH (21:51)
[2019-01-12] MEDS: HUMALOG SUBQ SCH (22:41)
[2019-01-12] MEDS: LEVEMIR SUBQ SCH (22:41)
[2019-01-13] MEDS: DUONEB (A & A) INH SCH ×5 (03:42→21:39)
[2019-01-13] MEDS: PERCOCET-10 PO PRN ×3 (06:51→20:05)
[2019-01-13] MEDS: HUMALOG SUBQ SCH ×4 (06:54→23:11)
[2019-01-13] MEDS: ZOSYN 4.5 GM in NS 100 ML IV SCH (06:54)
[2019-01-13] MEDS: TYLENOL PO PRN ×2 (06:54→23:08)
[2019-01-13] MEDS: PRILOSEC PO SCH (06:54)
[2019-01-13] MEDS ORDERED: PRILOSEC PO SCH (07:00)
[2019-01-13] MEDS ORDERED: INSULIN PEN NEEDLES ONE (07:15)
[2019-01-13 08:21] LABS: EOS# 0.19 X1000 (0.0-0.7); EOS% 1.3 % (0.0-10.0); HEMATOCRIT 28.3 % (37.0-47.0); HEMOGLOBIN 8.7 g/dL (12.0-16.0); IMM GRAN# 0.04 X1000 (0.0-0.04); IMM GRAN% 0.3 % (0.0-0.5); LYMPH% 3.4 % (20.5-51.1); MCH 29.5 PG (27-31); MCHC 30.7 g/dL (33-37); MCV 95.9 FL (81-99); MONO# 0.53 X1000 (0.11-0.59); MONO% 3.6 % (1.7-9.3); NEUT# 13.43 X1000 (1.4-6.5); NEUT% 91.4 % (42.2-75.2); PLT 354 X1000 (130-400); RBC 2.95 XMIL (4.2-5.4); RDW 16.5 % (11.5-14.5); WBC 14.69 X1000 (4.8-10.8)
[2019-01-13] MEDS: ASPIRIN PO SCH (08:29)
[2019-01-13] MEDS: COREG PO SCH ×2 (08:29→20:05)
[2019-01-13] MEDS: PLETAL PO SCH ×2 (08:29→20:05)
[2019-01-13 08:33] LABS: AGAP 12; ALB/GLOB RATIO 0.8; ALBUMIN 2.6 g/dL (3.5-5.0); ALKALINE PHOSPHATASE 81 U/L (32-104); BUN 15 mg/dL (8-22); CALCIUM 8.2 mg/dL (8.8-10.2); CHLORIDE 104 mmol/L (98-107); COSMO 289; CREATININE 0.9 mg/dL (0.5-0.9); ESTIMATED GFR > 60; GLUCOSE 147 mg/dL (70-104); GOT 17 U/L (10-30); GPT 15 U/L (10-36); POTASSIUM 4.1 mmol/L (3.5-5.1); SODIUM 143 mmol/L (136-145); TCO2 27 mmol/L (25-35); TOTAL BILIRUBIN 0.36 mg/dL (0.20-1.00); TOTAL PROTEIN 5.9 g/dL (6.3-8.3)
[2019-01-13 08:44] LABS: BANDS 10 % (0-1); LYMPHS 8 % (21-51); SEGS 82 % (42-75)
[2019-01-13] MEDS ORDERED: PERCOCET-10 PO SCH (09:00)
--- NOTE | 2019-01-13 11:08 | EKG Report ---
Test Performed on : 01/12/2019 2:41:58 PM Test Reason : SOB Blood Pressure : / mmHG Vent. Rate : 096 BPM Atrial Rate : 096 BPM P-R Int : 162 ms QRS Dur : 068 ms QT Int : 392 ms P-R-T Axes : 022 014 051 degrees QTc Int : 495 ms Normal sinus rhythm. Inferior infarct , age undetermined Abnormal ECG No previous ECGs available Unconfirmed Result
[2019-01-13] MEDS: LASIX PO SCH (11:52)
[2019-01-13] MEDS: FERROUS SULFATE PO SCH (11:52)
[2019-01-13] MEDS: WELLBUTRIN XL PO SCH (11:52)
--- NOTE | 2019-01-13 12:01 | PROGRESS NOTE ---
DATE: 01/13/2019 SUBJECTIVE: This patient is feeling better, but she has having episodes of fever, even though she has been placed on antibiotics. She received already some fluids in the emergency department, which have been stopped now. She has been placed on vancomycin and Zosyn. Infectious Disease Department has been consulted. Probably the antibiotics will be rotated. OBJECTIVE: Vital signs: Temperature 101.6, pulse 108, respiratory rate 18, blood pressure 126/54. Oxygen saturation 98% on 3 L of nasal cannula. HEENT: Head normocephalic, no trauma. PERRLA. Neck: Supple. No JVD. No masses. Central trachea. Chest: Clear to auscultation. No wheezing. No rales. Abdomen: Soft, nontender, nondistended. No hepatosplenomegaly. Extremities: She does have redness on her legs bilaterally, and probably some signs of venous stasis bilaterally as well. She has an ulcer to her left medial heel with necrotic wounds noted to the interphalangeal joints on her left foot. LABORATORY: WBC 14.6, hemoglobin 8.7, hematocrit 28.3, platelets 354,000. Sodium 143, potassium 4.1, chloride 104, bicarbonate 27, BUN 15, creatinine 0.9. Glucose 147, calcium 8.2, albumin 2.6. ASSESSMENT AND PLAN: 1. Sepsis. She already received some fluids. I will put the patient back on her home medications since the vital signs are stable except for the high temperature. Continue broad- spectrum antibiotics. Infectious Disease Department consulted. 2. Ulcers bilateral feet, this patient has been followed by Dr. Robertson as an outpatient. We consulted the Surgery Department. Continue with antibiotics. Culture has been obtained. 3. Acute hypoxemic respiratory failure. Continue with oxygen supplementation and DuoNeb scheduled and as needed. She seems to be breathing better. Continue with oxygen supplementation as well. 4. Type 2 diabetes. Continue pattern blood sugar and sliding scale insulin. 5. History of hypertension. For now, we will continue with same management. I have placed this patient back on some of her home medications. 6. History of metastatic breast cancer. Aware. 7. History of coronary artery disease, aware. Continue with home medications. cc: Lazaro Frazier MD
--- NOTE | 2019-01-13 12:36 | INFECTIOUS DISEASE CONSULT REP ---
DATE: 01/13/2019 CONCLUSION: 1. The patient has bilateral leg cellulitis and on the left foot, there is a large superficial ulcer. The patient has told me that the leg cellulitis and the wound on the left foot are due to chemotherapy she is taking for breast cancer. 2. 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 RECOMMENDATIONS: I agree with treating the patient with vancomycin. I have substituted cefepime for Zosyn. Culture from the leg is pending. I am ordering immunoglobulin levels. DISCUSSION: The patient for the past month has had bilateral leg cellulitis with formation of a large superficial wound on the left foot and some smaller wounds on both feet. The patient's left foot Gram stain shows no white blood cells, bacteria, or fungi. Blood cultures are pending. A culture from the left foot is also pending. Chest x-ray shows pulmonary edema. CT scan of the head shows microangiopathy. Creatinine is 0.9, GFR is greater than 60. Liver function studies are normal. Urinalysis shows no white cells or bacteria. PAST MEDICAL HISTORY/REVIEW OF SYSTEMS: Eyes and Ears: She does not have any problem hearing or seeing. Neck: No stiffness. Respiratory: No cough or shortness of breath. Cardiac: No chest pain or palpitations. Gastrointestinal: No nausea, vomiting, or diarrhea. Genitourinary: No dysuria or flank pain. Bones, Joints, Muscles: No joint swelling or muscle aching. Neurologic: No seizures and no recent loss of motor or sensory function. Endocrine: The patient is a diabetic, but she does not have thyroid disease. OBSTETRICAL/GYNECOLOGICAL HISTORY: Patient is a 1, para 1, AB 0. She has had a hysterectomy and tubal ligation. PREVIOUS HOSPITALIZATIONS AND OPERATIONS: The patient has had labor and delivery, a hysterectomy, a tubal ligation, laminectomy of the lower back, bifemoral artery bypass, placement of a right- sided Port-A-Cath, left breast mastectomy, a cholecystectomy, bilateral carotid endarterectomies each done twice according to the patient's sister, the patient has had an aortic valve replaced, and she has also had coronary artery bypass grafting. MEDICAL DISEASES: Positive for diabetes mellitus, hypertension, obesity, myocardial infarction, stroke, hyperlipidemia, aortic valve disease that resulted in aortic valve replacement, congestive heart failure, breast cancer with metastatic disease to lymph nodes for which she is getting chemotherapy, and finally hyperlipidemia. INFECTIOUS DISEASE HISTORY: Positive for pneumonia, urinary tract infection, and recurrent episodes of sinusitis. FAMILY HISTORY: Positive for hypertension, myocardial infarction, and cancer. SOCIAL HISTORY: [place] She is . She lives alone. She does not have pets. She is retired from working at [employer]. ALLERGIES: She is allergic to morphine and Levaquin. HOME MEDICATIONS: Include the following: Allopurinol, Lipitor, bupropion, Coreg, Keflex, Lasix, Neurontin, insulin, Antivert, Prilosec, Zofran, oxycodone, and potassium. PHYSICAL EXAMINATION: Vital Signs: Temperature is 101.6 degrees, pulse 108, respirations 18, blood pressure 126/54. General: This is an ill-appearing elderly female. She is in no acute distress. Head, Eyes, Ears, Nose, and Throat: The patient does not have any hair. There is no drainage from the nose or ears. She does not have any white patches on her tongue. Neck: The patient has bilateral incisions from her carotid endarterectomies. She does not have any pain when she moves her neck. Lungs: Clear to auscultation. Cardiovascular: Regular heart rate. No murmur. Abdomen: Soft and nontender. Extremities: Both legs are erythematous. The left leg has a large superficial ulcerated area a has beefy red tissue and. There was no drainage. Neurologic: The patient is awake. She can move her extremities. There is no tremor. Her sensation is intact to touch. Her memory as regarding her medical history is decreased. Thank you for the consult. cc: Magdi Brice MD
[2019-01-13] MEDS: NEURONTIN PO SCH ×3 (13:36→20:05)
[2019-01-13] MEDS: MAXIPIME 2 GM in NS 100 ML IV SCH (13:37)
--- NOTE | 2019-01-13 17:23 | GENERAL SURGERY CONSULTATION ---
DATE: 01/13/2019 REQUESTING PHYSICIAN: Hospitalist. REASON FOR CONSULTATION: Leg wound. HISTORY OF PRESENT ILLNESS: A 68-year-old female who was found unresponsive in respiratory distress by family members. She was brought to the emergency department. She is being currently worked up. She has improved significantly from this altered mental status and she is doing okay at this point. She is a patient of Dr. Hernandezs, [facility], for bilateral lower extremity wounds. She had previously been having Drawtex placed on but they have significantly dried out and now they have a Vashe wet-to-dry in place. She had been on antibiotics for this. Given her admission to the hospital, I was asked to weigh an opinion. Dr. Robertson is currently out of town. PAST MEDICAL HISTORY: 1. Metastatic breast cancer. 2. Hypertension. 3. Coronary artery disease. 4. Aortic valve replacement. 5. Diabetes mellitus. 6. Dyslipidemia. 7. Peripheral vascular disease. 8. Systolic heart failure. PAST SURGICAL: 1. Cholecystectomy. 2. Hysterectomy. 3. Aortic valve replacement. 4. Coronary artery disease with bypass graft. 5. Bilateral carotid endarterectomies. SOCIAL HISTORY: Denies alcohol, tobacco, illicit drugs. ALLERGIES: 1. Morphine. 2. Levaquin. HOME MEDICATIONS: Reviewed. FAMILY HISTORY: Reviewed with the patient and noncontributory. REVIEW OF SYSTEMS: A full 10 point review of systems obtained, negative as specified in HPI. PHYSICAL EXAMINATION: Vital Signs: The patient is currently afebrile. Her vital signs are stable. General: No acute distress. Alert, interactive female looks stated age. HEENT: Normocephalic, atraumatic. Pupils equal, round, reactive to light. Mucous membranes moist. Oropharynx benign. Neck: Supple. Trachea midline. Cardiovascular: Regular rate and rhythm. Lungs: Grossly clear. Abdomen: Soft, nontender, nondistended. Extremities: Erythema noted to the legs. Her wounds for the most part have dressings on them. Vascular: All extremities perfused. Neurologic: Grossly intact. Skin: As noted above. LABORATORY DATA: White blood cell count is 14, hematocrit 28, platelet count 354,000. ASSESSMENT AND PLAN: A 68-year-old female with multiple medical comorbidities, now with altered mental status with bilateral lower extremity leg wounds. 1. Multiple medical comorbidities currently being managed by the hospitalist service. 2. Altered mental status currently being managed by the hospitalist service. 3. Bilateral lower extremity feet ulcers. At this time, we will continue local wound care. We will have Dr. Robertson reassess when he comes back. Otherwise, continue current treatment. I appreciate the consult. cc: Gian Faulkner MD
[2019-01-13] MEDS: VANCOMYCIN 1,800 MG in NS 250 ML IV SCH (17:27)
[2019-01-13] MEDS: ZYLOPRIM PO SCH (20:05)
[2019-01-13] MEDS: LIPITOR PO SCH (20:05)
[2019-01-13] MEDS: LEVEMIR SUBQ SCH (20:06)
[2019-01-14] MEDS: MAXIPIME 2 GM in NS 100 ML IV SCH ×2 (01:23→13:27)
[2019-01-14] MEDS: PERCOCET-10 PO PRN ×3 (02:16→18:52)
[2019-01-14] MEDS: DUONEB (A & A) INH SCH ×4 (05:06→21:21)
[2019-01-14] MEDS: PRILOSEC PO SCH (06:41)
[2019-01-14] MEDS: HUMALOG SUBQ SCH ×4 (06:41→20:46)
[2019-01-14 07:13] LABS: BASO# 0.01 X1000 (0.0-0.2); BASO% 0.1 % (0.0-0.8); EOS# 1.04 X1000 (0.0-0.7); EOS% 8.3 % (0.0-10.0); HEMATOCRIT 27.8 % (37.0-47.0); HEMOGLOBIN 8.5 g/dL (12.0-16.0); IMM GRAN# 0.05 X1000 (0.0-0.04); IMM GRAN% 0.4 % (0.0-0.5); LYMPH# 0.91 X1000 (1.2-3.4); LYMPH% 7.2 % (20.5-51.1); MCH 29.4 PG (27-31); MCHC 30.6 g/dL (33-37); MCV 96.2 FL (81-99); MONO% 6.4 % (1.7-9.3); NEUT# 9.76 X1000 (1.4-6.5); NEUT% 77.6 % (42.2-75.2); PLT 372 X1000 (130-400); RBC 2.89 XMIL (4.2-5.4); RDW 16.6 % (11.5-14.5); WBC 12.57 X1000 (4.8-10.8)
[2019-01-14 07:28] LABS: AGAP 10; BUN 15 mg/dL (8-22); CALCIUM 8.5 mg/dL (8.8-10.2); CHLORIDE 103 mmol/L (98-107); COSMO 284; CREATININE 0.8 mg/dL (0.5-0.9); ESTIMATED GFR > 60; GLUCOSE 66 mg/dL (70-104); POTASSIUM 3.4 mmol/L (3.5-5.1); SODIUM 143 mmol/L (136-145); TCO2 30 mmol/L (25-35)
--- NOTE | 2019-01-14 08:55 | GENERAL SURGERY PROGRESS NOTE ---
DATE: 01/14/2019 SUBJECTIVE: Ms. Stinson is known to me from [facility]. OBJECTIVE: She is afebrile with stable hemodynamics. She is awake alert and oriented[place] [id number]. Her wounds were inspected and are a bit dried out. I would recommend we continue with Vashe gauze to the dried wounds to be changed twice a day. cc: Chuck Robertson MD
[2019-01-14] MEDS: WELLBUTRIN XL PO SCH (10:08)
[2019-01-14] MEDS: NEURONTIN PO SCH ×4 (10:09→20:27)
[2019-01-14] MEDS: PLETAL PO SCH ×2 (10:09→20:27)
[2019-01-14] MEDS: ASPIRIN PO SCH (10:09)
[2019-01-14] MEDS: COREG PO SCH ×2 (10:09→20:27)
[2019-01-14] MEDS: FERROUS SULFATE PO SCH (10:09)
[2019-01-14] MEDS: FOLIC ACID PO SCH (10:10)
[2019-01-14] MEDS: LASIX PO SCH (10:10)
--- NOTE | 2019-01-14 10:50 | PROGRESS NOTE ---
DATE: 01/14/2019 SUBJECTIVE: Patient lying in bed, resting quietly. No complaints voiced at this time. OBJECTIVE: Vital signs: Temperature 98 degrees, pulse 81, respirations 20, blood pressure 153/53, saturating 98% on O2 via nasal cannula. General: This is a 68-year-old female who is lying in the bed and answers questions appropriately. HEMNT: Normocephalic and atraumatic. Normal ENT inspection. Eyes: Pupils are equal, round, and reactive to light and accommodation. Neck: Normal inspection. Normal range of motion. Lungs: Clear to auscultation bilaterally with equal lung expansion and chest wall movement. Heart: With regular rate and rhythm. No murmurs, rubs, or gallops. Abdomen: Soft, nontender, nondistended. Bowel sounds are present x4 quadrants. Musculoskeletal: She is noted to have some mild redness to her legs bilaterally with venous stasis bilaterally as well. She has an ulcer to her left medial heel with necrotic wounds noted to the interphalangeal joints of her left foot, but moves extremities well. Neurological: The cranial nerves 2 through 12 appear grossly intact. ASSESSMENT: 1. Sepsis, improved. She has not had a fever since yesterday morning. She did have a low-grade around 8 p.m. last night of 100.2, but otherwise has been normal. We continue her broad- spectrum antibiotics and Infectious Disease has been consulted and following. 2. Bilateral feet ulcers. Is being followed by Dr. Robertson from General Surgery. He follows her outpatient, and treatments are ongoing per his recommendation. 3. Acute hypoxemic respiratory failure, improved. We continue with her oxygen supplementation and DuoNeb as scheduled. 4. Type 2 diabetes. We will continue her patterned blood sugars with sliding scale insulin. 5. History of metastatic breast cancer. Aware. 6. History of coronary artery disease. Aware and continue home medications. We will check a CBC, BMP in the a.m. Dictated by MARGY Alva for Joel Pérez MD cc: MARGY Alva MD
--- NOTE | 2019-01-14 15:03 | INFECTIOUS DISEASE PROGRESS NO ---
DATE: 01/14/2019 PRESENT ILLNESS: The patient has bilateral leg cellulitis primarily involving her feet. MEDICATIONS: The patient is on a combination of cefepime and vancomycin. PHYSICAL EXAMINATION: Vital Signs: Temperature is 98.4 degrees, pulse 92, respirations 20, blood pressure 123/46. General: This is an ill-appearing elderly female. She is in no acute distress. Head, eyes, ears, nose, throat: She can hear my spoken words and see near objects. There is no white coating to her tongue. Neck: The patient does not have any pain when she moves her neck. Lungs: Clear to auscultation. Cardiovascular: Heart rate is regular. Abdomen: Soft and nontender. Extremities: The patient legs are less erythematous. Both ankles and feet have dressings on them. The dressings are intact. Neurologic: The patient is alert. She can move her extremities. There is no tremor. LAB AND RADIOLOGY: The patient's CBC shows a white count of 12,570, hemoglobin is 8.5, platelet count is 372,000. Creatinine is 0.8. GFR is greater than 60. Blood cultures are negative. IgG is 677. IgA is 167. Culture from the left foot is growing gram-positive cocci. ASSESSMENT AND PLAN: Patient has bilateral leg cellulitis. I plan on continuing vancomycin and cefepime pending culture results. As regarding the patient's IgG level of 677, this is so close to the normal value of 700 to 1,300 that clinically I think that the IgG level is not significant and does not require immunoglobulin supplementation. My plan now is to continue the patient's antibiotics to treat her cellulitis. COMORBIDITIES: She is a diabetic. She is obese and has chronic leg edema. She also has breast cancer with metastatic disease and the patient is receiving chemotherapy. cc: Magdi Brice MD
[2019-01-14] MEDS: VANCOMYCIN 1,800 MG in NS 250 ML IV SCH (16:27)
--- NOTE | 2019-01-14 18:13 | PROGRESS NOTE ---
DATE: 01/14/2019 ADDENDUM: Kathy Stinson is seen this evening. Nurse practitioner saw her this morning. She seems to be doing okay, complaining of some shortness of breath. Other than that, she has no major complaints. She has been getting antibiotics per Dr. Brice for cellulitis of the foot. Right now her culture is growing out gram-positive cocci, for which she is on vancomycin and cefepime, so we are going to continue those for right now, see what her culture grows out and follow closely. This is a [id number] encounter note with MARGY Alva. cc: Joel Pérez MD
--- NOTE | 2019-01-14 19:12 | Diag Imaging Result Doc PS360 ---
EXAM: CHEST-2 VIEWS INDICATION: hypoxia TECHNIQUE: 2 views COMPARISON: 01/12/2019 FINDINGS: The right chest port is in stable position. Interstitial thickening suggesting mild edema is stable to marginally improved. No new consolidation is identified. Cardiac silhouette is stable. IMPRESSION: Stable to marginal improvement of interstitial edema. Electronically signed by Mason Malik 01/14/2019 7:10 PM
[2019-01-14] MEDS: LIPITOR PO SCH (20:27)
[2019-01-14] MEDS: TYLENOL PO PRN (20:27)
[2019-01-14] MEDS: ANTIVERT PO SCH (20:27)
[2019-01-14] MEDS: ZYLOPRIM PO SCH (20:27)
[2019-01-14] MEDS: LEVEMIR SUBQ SCH (20:47)
[2019-01-15] MEDS: MAXIPIME 2 GM in NS 100 ML IV SCH (01:25)
[2019-01-15] MEDS: DUONEB (A & A) INH SCH ×4 (04:10→20:02)
[2019-01-15] MEDS: HUMALOG SUBQ SCH ×7 (06:05→20:25)
[2019-01-15] MEDS: PRILOSEC PO SCH (06:31)
[2019-01-15] MEDS: PERCOCET-10 PO PRN ×3 (06:33→20:25)
[2019-01-15] MEDS: TYLENOL PO PRN (06:34)
[2019-01-15] MEDS ORDERED: NITROGLYCERIN TOP ONE (06:43)
[2019-01-15 06:55] LABS: BASO# 0.01 X1000 (0.0-0.2); BASO% 0.1 % (0.0-0.8); EOS# 1.47 X1000 (0.0-0.7); EOS% 9.2 % (0.0-10.0); HEMATOCRIT 30.8 % (37.0-47.0); HEMOGLOBIN 9.2 g/dL (12.0-16.0); IMM GRAN# 0.05 X1000 (0.0-0.04); IMM GRAN% 0.3 % (0.0-0.5); LYMPH# 1.07 X1000 (1.2-3.4); LYMPH% 6.7 % (20.5-51.1); MCH 28.7 PG (27-31); MCHC 29.9 g/dL (33-37); MONO# 0.92 X1000 (0.11-0.59); MONO% 5.7 % (1.7-9.3); MPV 9.2 FL (7.4-10.4); NEUT# 12.52 X1000 (1.4-6.5); PLT 397 X1000 (130-400); RBC 3.21 XMIL (4.2-5.4); RDW 16.8 % (11.5-14.5); WBC 16.04 X1000 (4.8-10.8)
--- NOTE | 2019-01-15 07:30 | EKG Report ---
Test Performed on : 01/15/2019 06:09:47 AM Test Reason : cp Blood Pressure : / mmHG Vent. Rate : 109 BPM Atrial Rate : 109 BPM P-R Int : 194 ms QRS Dur : 080 ms QT Int : 324 ms P-R-T Axes : 045 030 069 degrees QTc Int : 436 ms Sinus tachycardia. Possible Left atrial enlargement Borderline ECG When compared with ECG of 12-JAN-2019 14:41, (Unconfirmed) ST no longer elevated in Inferior leads QT has shortened Confirmed by Geo BEY, Juan F Driscoll ([id number]) on 01/15/2019 8:21:22 AM
[2019-01-15 07:41] LABS: AGAP 12; BUN 14 mg/dL (8-22); CALCIUM 8.8 mg/dL (8.8-10.2); CHLORIDE 99 mmol/L (98-107); COSMO 275; CREATININE 0.8 mg/dL (0.5-0.9); ESTIMATED GFR > 60; GLUCOSE 77 mg/dL (70-104); POTASSIUM 3.5 mmol/L (3.5-5.1); SODIUM 138 mmol/L (136-145); TCO2 27 mmol/L (25-35)
[2019-01-15] MEDS ORDERED: NITROGLYCERIN SL PRN (09:00)
[2019-01-15] MEDS: NEURONTIN PO SCH ×4 (09:19→20:25)
[2019-01-15] MEDS: LASIX PO SCH (09:20)
[2019-01-15] MEDS: ASPIRIN PO SCH (09:20)
[2019-01-15] MEDS: VITAMIN D PO SCH (09:20)
[2019-01-15] MEDS: FERROUS SULFATE PO SCH (09:20)
[2019-01-15] MEDS: FOLIC ACID PO SCH (09:20)
[2019-01-15] MEDS: ANTIVERT PO SCH ×2 (09:20→20:25)
[2019-01-15] MEDS: COREG PO SCH ×2 (09:20→20:25)
[2019-01-15] MEDS: WELLBUTRIN XL PO SCH (09:20)
[2019-01-15] MEDS: PLETAL PO SCH ×2 (09:20→20:26)
--- NOTE | 2019-01-15 13:48 | INFECTIOUS DISEASE PROGRESS NO ---
DATE: 02/15/2019 PRESENT ILLNESS: The patient has bilateral oxacillin sensitive Staph aureus leg cellulitis primarily involving her feet. MEDICATIONS: The patient is on vancomycin as a single agent. The culture came back from the patient's foot and is growing an oxacillin sensitive Staph aureus, so I have discontinued vancomycin and placed the patient on Ancef. PHYSICAL EXAMINATION: Vital Signs: Temperature is 98.5 degrees, pulse 82, respirations 20, blood pressure 125/48. General: This is a ill-appearing elderly female. She is in no acute distress. Head/eyes/ears/nose/throat: She can hear my spoken words and see near objects. She does not have any white patches on her tongue. Neck: No meningismus. Lungs: Clear to auscultation. Cardiovascular: Heart rate is regular. Abdomen: Soft and nontender. Extremities: Overall the patient's legs I think are getting less erythematous there. There is some edema that is present. The patient has dressings on each foot today. The dressings are intact. Neurologic: The patient is awake. She can move her extremities. There is no tremor. LAB AND X-RAY: There is no radiographic studies. Today's CBC shows a white count of 16,040 hemoglobin 9.2, platelet count 397,000. Creatinine 0.8, GFR is greater than 60. IgG is 677, IgA is 167. Culture from the patient's foot grew oxacillin sensitive Staph aureus. ASSESSMENT AND PLAN: Patient has Staph aureus leg cellulitis. The patient has been switched from vancomycin to Ancef. The patient has been told to elevate her legs as much as possible. Also, I have ordered for the foot of the bed to be elevated with the manual Gatch continuously. COMORBIDITIES: The patient is diabetic. She also as obese and has chronic leg edema. She has breast cancer with metastatic disease. The patient also is receiving chemotherapy. cc: Magdi Brice MD
[2019-01-15] MEDS: KEFZOL 2 GM/D5W 2 GM/50 ML IVPB IV SCH ×2 (14:24→20:24)
[2019-01-15] MEDS ORDERED: VANCOMYCIN IV PER PHARMACY MISC SCH (15:00)
--- NOTE | 2019-01-15 15:26 | PROGRESS NOTE ---
DATE: 01/15/2019 SUBJECTIVE: Patient has no major complaints except some chest pain this morning. OBJECTIVE: Blood pressure 125/48, heart rate 82, respiratory rate 20, temperature 98.5 degrees, 96% on 3 L. She had a temperature last night though of 101.9.Cardiovascular: Regular rate and rhythm. Pulmonary: Bilateral breath sounds. Clear to auscultation. GI: Soft, nontender, and nondistended. Bowel sounds are positive. LABORATORY DATA: White count 16, hemoglobin and hematocrit 9 and 30, platelets 397,000. Basic was normal. PROBLEM LIST: 1. MRSA cellulitis and foot ulcers. She is on vancomycin. Infectious Disease is following, which is Dr. Brice. His recommendations are that she switched her from [facility] to [facility]. I saw a culture earlier today, and I felt like it looked like it was oxacillin sensitive, but then it was not. I do not know, the report was inconsistent, but right now it is MRSA so I am going to put her back on vancomycin. In any case, we are treating that. 2. Hypoxia, unclear etiology. She does have a history of CAD. Her EKGs and cardiacs are negative. She is at risk for VTE, and we have not had her on DVT prophylaxis, possibly a bleeding risk for thrombocytopenia, but in any case she is high risk I think for DVT so we will put her on DVT prophylaxis. I will pursue with a CTA and venous Doppler's. I think a D- dimer is probably going to be meaningless this many days as an inpatient and status post sepsis. I do not think it is positive. It's not really going to change our workup. 3. Type 2 diabetes. Continue sliding scale insulin. 4. Metastatic breast cancer. Aware. We will continue to follow. DISPOSITION: Pending her clinical status. cc: Joel Pérez MD
--- NOTE | 2019-01-15 15:43 | Diag Imaging Result Doc PS360 ---
EXAM: CT ANGIOGRM PULMONARY ARTERIES INDICATION: chest pain TECHNIQUE: This exam was performed using automated exposure control, adjustment of mA or kV according to patient size, and/or use of iterative reconstruction technique. Thin section axial images and 3-D MIPS were obtained. COMPARISON: 07/24/2018 FINDINGS: There is no evidence of pulmonary embolism. There is patchy aortic atherosclerotic calcification. There is no evidence of thoracic aortic aneurysm or dissection. There is cardiomegaly. There are mildly prominent mediastinal lymph nodes. A few have increased in size during the interval. For reference, there is an AP window lymph node on image 45 of series 4 that measures up to 1.1 x 1.7 cm axially (0.9 x 0.8 cm previously). They are nonspecific and may be reactive. There are diffuse interstitial and airspace infiltrates bilaterally. This is most consistent with pulmonary edema. A component of pneumonia is possible in the right clinical scenario. There are small bilateral pleural effusions and there is bibasilar atelectasis. Limited views of the upper abdomen are essentially unremarkable. During the interval, there has been a left mastectomy and left axillary carmita dissection. There is a small left axillary fluid collection that probably represents a postsurgical seroma. There is multilevel spondylosis throughout the spine. IMPRESSION: 1.Interstitial and airspace consolidations bilaterally most consistent with pulmonary edema. However, a component of pneumonia would be possible in the right clinical scenario. 2.Small bilateral pleural effusions and bibasilar atelectasis. 3.Mild mediastinal lymphadenopathy that appears slightly worse than the previous study. This may be reactive. 4.Interval left mastectomy and left axillary carmita dissection with small seroma in the left axillary region. 5.No evidence of pulmonary embolism. Electronically signed by Mason Malik 01/15/2019 3:41 PM
[2019-01-15] MEDS: VANCOMYCIN 1,800 MG in NS 250 ML IV SCH ×2 (17:05)
[2019-01-15] MEDS: LOVENOX SUBQ SCH (17:06)
[2019-01-15] MEDS: LEVEMIR SUBQ SCH (20:24)
[2019-01-15] MEDS: ZYLOPRIM PO SCH (20:25)
[2019-01-15] MEDS: LIPITOR PO SCH (20:25)
[2019-01-16] MEDS: DUONEB (A & A) INH SCH ×4 (03:45→22:05)
[2019-01-16] MEDS: KEFZOL 2 GM/D5W 2 GM/50 ML IVPB IV SCH (04:15)
[2019-01-16] MEDS: TYLENOL PO PRN ×2 (04:15→19:51)
[2019-01-16] MEDS: HUMALOG SUBQ SCH ×7 (06:09→20:10)
[2019-01-16] MEDS: PRILOSEC PO SCH (06:10)
[2019-01-16 07:26] LABS: BASO# 0.02 X1000 (0.0-0.2); BASO% 0.2 % (0.0-0.8); EOS# 1.03 X1000 (0.0-0.7); EOS% 7.9 % (0.0-10.0); HEMATOCRIT 26.6 % (37.0-47.0); IMM GRAN# 0.03 X1000 (0.0-0.04); IMM GRAN% 0.2 % (0.0-0.5); LYMPH# 1.25 X1000 (1.2-3.4); LYMPH% 9.5 % (20.5-51.1); MCH 28.7 PG (27-31); MCHC 30.1 g/dL (33-37); MCV 95.3 FL (81-99); MONO# 0.76 X1000 (0.11-0.59); MONO% 5.8 % (1.7-9.3); MPV 9.3 FL (7.4-10.4); NEUT# 10.01 X1000 (1.4-6.5); NEUT% 76.4 % (42.2-75.2); PLT 389 X1000 (130-400); RBC 2.79 XMIL (4.2-5.4); RDW 16.6 % (11.5-14.5)
[2019-01-16 07:44] LABS: AGAP 13; BUN 11 mg/dL (8-22); CALCIUM 8.4 mg/dL (8.8-10.2); CHLORIDE 101 mmol/L (98-107); COSMO 284; CREATININE 0.7 mg/dL (0.5-0.9); ESTIMATED GFR > 60; GLUCOSE 127 mg/dL (70-104); POTASSIUM 3.2 mmol/L (3.5-5.1); SODIUM 142 mmol/L (136-145); TCO2 28 mmol/L (25-35)
[2019-01-16] MEDS: WELLBUTRIN XL PO SCH (08:27)
[2019-01-16] MEDS: PERCOCET-10 PO PRN ×2 (08:27→19:50)
[2019-01-16] MEDS: PLETAL PO SCH ×2 (08:28→20:09)
[2019-01-16] MEDS: ASPIRIN PO SCH (08:28)
[2019-01-16] MEDS: FERROUS SULFATE PO SCH (08:28)
[2019-01-16] MEDS: NEURONTIN PO SCH ×4 (08:28→20:09)
[2019-01-16] MEDS: COREG PO SCH ×2 (08:28→20:09)
[2019-01-16] MEDS: LASIX PO SCH (08:28)
[2019-01-16] MEDS: VITAMIN D PO SCH (08:28)
[2019-01-16] MEDS: FOLIC ACID PO SCH (08:28)
[2019-01-16] MEDS: ANTIVERT PO SCH ×2 (08:29→20:09)
[2019-01-16] MEDS: MAXIPIME 2 GM in NS 100 ML IV SCH ×2 (11:54→22:44)
--- NOTE | 2019-01-16 13:28 | INFECTIOUS DISEASE PROGRESS NO ---
DATE: 01/16/2019 PRESENT ILLNESS: The patient has bilateral methicillin-resistant Staphylococcus aureus leg cellulitis. The patient also may be developing pneumonia as seen on her CT angiogram. MEDICATIONS: The patient is on vancomycin and Ancef. PHYSICAL EXAMINATION: Vital Signs: Temperature was 103 degrees and now it is 99, pulse 100, respirations 20, blood pressure 120/60. General: This is an obese, ill-appearing, elderly female. She is in no acute distress. Head, Eyes, Ears, Nose, and Throat: She can hear my spoken words and see near objects. She does not have any white coating of her tongue. Neck: She does not have any pain when she moves her neck. Lungs: Clear to auscultation. Cardiovascular: Heart rate is regular. Abdomen: Soft and nontender. Extremities: I removed the dressings from the patient's feet. Both legs have distal erythema but it is getting less than it was a few days ago. There are some open areas that are crusting over. Neurologic: The patient is awake. She can move her extremities. There is no tremor. LAB AND X-RAY: CBC shows a white count of 13,100, hemoglobin 8, platelet count 389,000. Creatinine is 0.7. GFR is greater than 60. IgG is 677. Culture from the patient's left foot grew methicillin-resistant Staphylococcus aureus. CT angiogram showed bilateral consolidations which could be due to pneumonia. The patient also has bilateral small pleural effusions. ASSESSMENT AND PLAN: The patient has methicillin-resistant Staphylococcus aureus leg cellulitis and she may be developing a pneumonia as well. My plan is to continue vancomycin. I have discontinued Ancef and instead have placed the patient on cefepime. COMORBIDITIES: The patient is diabetic. She is obese. She has chronic leg edema. She also, unfortunately, has metastatic breast cancer for which she is receiving chemotherapy. cc: Magdi Brice MD
--- NOTE | 2019-01-16 14:33 | PROGRESS NOTE ---
DATE: 01/16/2019 SUBJECTIVE: She looks a little better today. She is still short of breath, and she looks like she is still a little bit winded, but she does not look quite as lethargic as she did yesterday. OBJECTIVE: Vital signs: Blood pressure 112/52, heart rate 77, respiratory rate 20, temperature 98.2, and 98% on 4 L. Cardiovascular: Regular rate and rhythm. Pulmonary: Bilateral breath sounds. Clear to auscultation. GI: Soft, nontender, and nondistended. Bowel sounds are positive. LABORATORY DATA: White count is 13, hemoglobin and hematocrit 8 and 26, and platelets 389,000. Potassium is 3.2, glucose 127. Her CT angiogram which was done to evaluate for PE was negative for PE, but showing interstitial and airspace consolidation, which radiology feels is still more consistent with edema than pneumonia although it certainly possibly could be both, but no PE thankfully. From what I understand, her vascular study was negative for DVT. I do not have that report, but just a verbal report. PROBLEM LIST: 1. MRSA cellulitis bilaterally of the feet. She is on vancomycin. Dr. Brice is following. I am sure we have some oral options, clindamycin or Bactrim. It is resistant to tetracycline unfortunately, but continue vancomycin per Dr. Brice's recommendations. 2. Hypoxia. I think this is related to #1 pulmonary edema, and likely associated pneumonia. She is getting diuretics. Dr. Brice has added cefepime for pneumonia coverage. I am going to repeat her chest x-ray tomorrow. Continue pulmonary toilet. 3. Type 2 diabetes. Continue sliding scale on her regular medications. 4. Metastatic breast cancer aware of diagnosis, stable currently. She does need DVT prophylaxis because I think she is at fairly high risk for PE. Fortunately, we have ruled that out. DISPOSITION: Pending her clinical status, I think she is looking like she will likely need rehab. She has not progressed much with PT. I do not think she has been out of bed significantly. She did walk about 3 feet, which is more than I thought she would be able to, but we will continue strength training and see how she does. cc: Joel Pérez MD
[2019-01-16] MEDS: LOVENOX SUBQ SCH (16:34)
[2019-01-16] MEDS: VANCOMYCIN 1,800 MG in NS 250 ML IV SCH (18:29)
[2019-01-16] MEDS: ZOFRAN IV PRN (18:30)
[2019-01-16] MEDS: LASIX IV SCH (20:09)
[2019-01-16] MEDS: ZYLOPRIM PO SCH (20:09)
[2019-01-16] MEDS: LIPITOR PO SCH (20:09)
[2019-01-16] MEDS: LEVEMIR SUBQ SCH (20:10)
[2019-01-17] MEDS: DUONEB (A & A) INH SCH ×4 (03:02→21:00)
[2019-01-17] MEDS: PRILOSEC PO SCH (06:07)
[2019-01-17] MEDS: HUMALOG SUBQ SCH ×4 (06:15→11:56)
[2019-01-17 07:32] LABS: BASO# 0.03 X1000 (0.0-0.2); BASO% 0.2 % (0.0-0.8); EOS# 1.56 X1000 (0.0-0.7); EOS% 12.5 % (0.0-10.0); HEMATOCRIT 30.5 % (37.0-47.0); HEMOGLOBIN 9.3 g/dL (12.0-16.0); IMM GRAN# 0.06 X1000 (0.0-0.04); IMM GRAN% 0.5 % (0.0-0.5); LYMPH# 0.94 X1000 (1.2-3.4); LYMPH% 7.5 % (20.5-51.1); MCH 28.8 PG (27-31); MCHC 30.5 g/dL (33-37); MCV 94.4 FL (81-99); MONO# 1.06 X1000 (0.11-0.59); MONO% 8.5 % (1.7-9.3); MPV 9.1 FL (7.4-10.4); NEUT# 8.81 X1000 (1.4-6.5); NEUT% 70.8 % (42.2-75.2); PLT 407 X1000 (130-400); RBC 3.23 XMIL (4.2-5.4); RDW 16.5 % (11.5-14.5); WBC 12.46 X1000 (4.8-10.8)
[2019-01-17 08:05] LABS: AGAP 11; BUN 12 mg/dL (8-22); CALCIUM 8.8 mg/dL (8.8-10.2); CHLORIDE 99 mmol/L (98-107); COSMO 280; CREATININE 0.7 mg/dL (0.5-0.9); ESTIMATED GFR > 60; GLUCOSE 46 mg/dL (70-104); MAGNESIUM 1.8 mg/dL (1.5-2.7); PHOSPHORUS 3.4 mg/dL (2.7-4.5); POTASSIUM 3.1 mmol/L (3.5-5.1); SODIUM 142 mmol/L (136-145); TCO2 32 mmol/L (25-35)
[2019-01-17] MEDS: WELLBUTRIN XL PO SCH (09:51)
[2019-01-17] MEDS: VITAMIN D PO SCH (09:51)
[2019-01-17] MEDS: ASPIRIN PO SCH (09:51)
[2019-01-17] MEDS: ANTIVERT PO SCH ×2 (09:51→20:23)
[2019-01-17] MEDS: FOLIC ACID PO SCH (09:51)
[2019-01-17] MEDS: PLETAL PO SCH ×2 (09:51→20:22)
[2019-01-17] MEDS: FERROUS SULFATE PO SCH (09:52)
[2019-01-17] MEDS: PERCOCET-10 PO PRN ×3 (09:52→21:37)
[2019-01-17] MEDS: LASIX IV SCH ×2 (09:52→20:23)
[2019-01-17] MEDS: NEURONTIN PO SCH ×4 (09:52→20:23)
[2019-01-17] MEDS: COREG PO SCH ×2 (09:55→20:23)
--- NOTE | 2019-01-17 10:02 | Diag Imaging Result Doc PS360 ---
CHEST-2 VIEWS - 01/17/2019 INDICATION: hypoxia COMPARISON: 01/14/2019 FINDINGS: Stable right chest port. Stable mild cardiomegaly and pulmonary vascular congestion. Stable ill-defined interstitial infiltrates/pulmonary edema. No significant pleural effusion. IMPRESSION: No change from prior. Electronically signed by Wilfredo Tomas 01/17/2019 10:00 AM
[2019-01-17] MEDS: MAXIPIME 2 GM in NS 100 ML IV SCH ×2 (11:52→23:22)
[2019-01-17] MEDS: POTASSIUM CHLORIDE 20 MEQ/SWI 20 MEQ/100 ML IVPB IV SCH ×2 (11:53→17:25)
[2019-01-17] MEDS: LOVENOX SUBQ SCH (14:12)
[2019-01-17] MEDS: VANCOMYCIN 1,800 MG in NS 250 ML IV SCH (14:58)
--- NOTE | 2019-01-17 15:09 | PROGRESS NOTE ---
DATE: 01/17/2019 SUBJECTIVE: Patient has no focal complaints. OBJECTIVE: Blood pressure is 139/50, heart rate of 99, respiratory rate of 16, temperature 99.4. Temp was 100.2 last night, 102.9 yesterday morning.Cardiovascular: Regular rate and rhythm. Pulmonary: Bilateral breath sounds clear to auscultation. Gastrointestinal: Soft, nontender, nondistended. Bowel sounds are positive. LABORATORY DATA: White count is 12, which is down from 13, which is down from 16. Hemoglobin and hematocrit 9 and 30, platelets 407,000. Potassium 3.1. Sugar this morning was 46, a bit on the low side. PROBLEM LIST: 1. MRSA cellulitis. She is on vancomycin per Dr. Brice. I do not think there has been a big change. I think we can probably get her off that soon. 2. Pneumonia, bilateral lower lobe. She is on cefepime for that. We will continue to follow. 3. Diabetes. She has some intermittent hypoglycemia. I am going to change her medications around a little bit. 4. Hypokalemia. We will supplement her potassium and follow. 5. History of metastatic breast cancer. Aware. We will continue to monitor. DISPOSITION: We need to work on ambulating. She is working with PT. I am not entirely sure she may not need some rehab options, but we will continue to follow. cc: Joel Pérez MD
[2019-01-17] MEDS: MIRALAX PO SCH ×2 (15:57→16:02)
[2019-01-17] MEDS: LACTULOSE PO ONE ×2 (15:58→16:00)
[2019-01-17] MEDS: ZYLOPRIM PO SCH (20:23)
[2019-01-17] MEDS: LIPITOR PO SCH (20:23)
[2019-01-17] MEDS: LEVEMIR SUBQ SCH (20:23)
[2019-01-17] MEDS: TYLENOL PO PRN (20:23)
[2019-01-18] MEDS: TYLENOL PO PRN (01:30)
[2019-01-18] MEDS: DUONEB (A & A) INH SCH ×4 (03:00→21:46)
[2019-01-18] MEDS: VANCOMYCIN 1,800 MG in NS 250 ML IV SCH (06:16)
[2019-01-18] MEDS: PRILOSEC PO SCH (06:16)
[2019-01-18] MEDS: LACTULOSE PO SCH ×3 (06:18→20:20)
[2019-01-18 07:15] LABS: BASO# 0.02 X1000 (0.0-0.2); BASO% 0.2 % (0.0-0.8); EOS# 1.93 X1000 (0.0-0.7); HEMATOCRIT 29.2 % (37.0-47.0); HEMOGLOBIN 8.7 g/dL (12.0-16.0); IMM GRAN# 0.06 X1000 (0.0-0.04); IMM GRAN% 0.6 % (0.0-0.5); LYMPH# 1.08 X1000 (1.2-3.4); LYMPH% 11.2 % (20.5-51.1); MCH 28.3 PG (27-31); MCHC 29.8 g/dL (33-37); MCV 95.1 FL (81-99); MONO# 0.97 X1000 (0.11-0.59); MONO% 10.1 % (1.7-9.3); MPV 9.2 FL (7.4-10.4); NEUT# 5.59 X1000 (1.4-6.5); NEUT% 57.9 % (42.2-75.2); PLT 459 X1000 (130-400); RBC 3.07 XMIL (4.2-5.4); RDW 16.7 % (11.5-14.5); WBC 9.65 X1000 (4.8-10.8)
[2019-01-18 08:03] LABS: AGAP 10; BUN 14 mg/dL (8-22); CALCIUM 9.1 mg/dL (8.8-10.2); CHLORIDE 100 mmol/L (98-107); COSMO 289; CREATININE 0.8 mg/dL (0.5-0.9); ESTIMATED GFR > 60; GLUCOSE 92 mg/dL (70-104); MAGNESIUM 1.9 mg/dL (1.5-2.7); POTASSIUM 3.4 mmol/L (3.5-5.1); SODIUM 145 mmol/L (136-145); TCO2 35 mmol/L (25-35)
[2019-01-18] MEDS: PLETAL PO SCH ×2 (09:21→20:06)
[2019-01-18] MEDS: FOLIC ACID PO SCH (09:22)
[2019-01-18] MEDS: COREG PO SCH ×2 (09:22→20:06)
[2019-01-18] MEDS: FERROUS SULFATE PO SCH (09:22)
[2019-01-18] MEDS: ASPIRIN PO SCH (09:22)
[2019-01-18] MEDS: WELLBUTRIN XL PO SCH (09:22)
[2019-01-18] MEDS: VITAMIN D PO SCH (09:22)
[2019-01-18] MEDS: NEURONTIN PO SCH ×4 (09:22→20:19)
[2019-01-18] MEDS: ANTIVERT PO SCH ×2 (09:22→20:06)
[2019-01-18] MEDS: LASIX IV SCH (09:23)
[2019-01-18] MEDS: MIRALAX PO SCH (09:23)
[2019-01-18] MEDS: ZOFRAN IV PRN ×2 (09:31→23:00)
[2019-01-18] MEDS: MAXIPIME 2 GM in NS 100 ML IV SCH ×2 (11:33→23:02)
[2019-01-18] MEDS: VALTREX PO SCH ×2 (11:33→20:06)
[2019-01-18] MEDS ORDERED: KLOR-CON PO ONE (11:52)
[2019-01-18] MEDS: AQUAPHOR OINTMENT TOP SCH (12:18)
[2019-01-18] MEDS: PERCOCET-10 PO PRN ×2 (14:12→20:05)
[2019-01-18] MEDS: LOVENOX SUBQ SCH (14:12)
--- NOTE | 2019-01-18 17:50 | PROGRESS NOTE ---
DATE: 01/18/2019 SUBJECTIVE: The patient has no complaints. She is not eating too much. She did have a little bit of a bowel movement, but it was nothing major, but she has been fairly constipated. OBJECTIVE: Blood pressure is 123/52, heart rate of 95, respiratory rate 18, temperature 99.6, 95% on 2 L.Cardiovascular: Regular rate and rhythm. Pulmonary: Bilateral breath sounds, clear to auscultation. GI: Soft, nontender, nondistended. Bowel sounds are positive. LABORATORY DATA: White count 9, hemoglobin and hematocrit 8 and 29, platelets 459, potassium 3.4. Procalcitonin level is low. PROBLEM LIST: 1. Methicillin-resistant Staphylococcus aureus cellulitis. She is on vancomycin. We will continue to follow. 2. Pneumonia. She is on cefepime per Dr. Brice. Now her procalcitonin level is a bit low, so we will see what that shows, but clinically she is a little worse today, not so much from shortness of breath, but she just does not feel as well. 3. Diabetes. Continue her medications and follow. 4. Hypokalemia. We will supplement and follow. 5. Metastatic breast cancer. We will continue treatment and monitor. DISPOSITION: Pending her clinical status. cc: Joel Pérez MD
--- NOTE | 2019-01-18 18:17 | INFECTIOUS DISEASE PROGRESS NO ---
DATE: 01/18/2019 PRESENT ILLNESS: Ms. Stinson has a methicillin-resistant Staphylococcus aureus cellulitis to her bilateral feet and legs. She is also being treated for pneumonia. 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 MEDICATIONS: She is receiving IV vancomycin per pharmacy dosing as well as cefepime 2 g IV every 12 hours. PHYSICAL EXAMINATION: Vital Signs: Temperature is 99.6 degrees, pulse rate 95, respiratory rate 18, blood pressure 123/52, O2 saturation is 95% on 2 L nasal cannula. General: This is a chronically ill-appearing, elderly female. She is lying in bed, currently in no acute distress. HEENT: Atraumatic, normocephalic. Oral mucous membranes are pink and moist. She has a blister noted to her upper lip which is painful to her. Conjunctivae are pale. Neck: Supple. Trachea is midline. Cardiovascular: Heart rate and rhythm are regular. Normal sinus rhythm on the monitor. Respiratory: Lung sounds are clear to auscultation bilaterally. Diminished in the mid and bases. Abdomen: Soft, obese and nontender. Bowel sounds are active. Integumentary: There is a Port-A-Cath in place to the right chest. The site is without edema, erythema or drainage. She also has bilateral ulcers to her feet as well as some mild erythema to the calves bilaterally. Skin is very dry and flaky to the feet and legs. Neurologic: She is awake, alert and oriented. Able to move around in the bed independently without a tremor. LABORATORY AND X-RAY: Today her white count is 9.65, hemoglobin 8.7, platelet count 459,000. Creatinine 0.8, estimated GFR is greater than 60. Her left foot previously grew a methicillin- resistant Staphylococcus aureus. Blood cultures have shown no growth since admission. Chest x-ray done yesterday shows no change from prior, with stable mild cardiomegaly and pulmonary vascular congestion with stable ill-defined interstitial infiltrates/pulmonary edema. ASSESSMENT AND PLAN: Ms. Stinson is being treated for bilateral lower extremity methicillin- resistant Staphylococcus aureus infection and is receiving vancomycin, which we will continue. At this point it looks like there is some improvement to the ulcers on her feet. The feet are very dry, with flaky skin. She is receiving Vashe on the dressing changes to these. I have ordered Aquaphor ointment to also be placed around the dry skin areas to her feet and legs bilaterally. She has a pneumonia which is stable at this point. We will go ahead and recheck a chest x-ray on Sunday. I have discussed with her the importance of using her incentive spirometer. We will continue vancomycin and cefepime. She is complaining today of a vesicle to her upper lip. We will go ahead and order Valtrex 1 g by mouth every 12 hours for this. These plans have been discussed with and recommended by Dr. Brice. COMORBIDITIES: for Ms. Stinson include that she is elderly and obese, with diabetes mellitus and metastatic breast cancer with chemotherapy. Dictated by MARGY Harris for Magdi Brice MD cc: Magdi Brice MD [email or web address]
[2019-01-18] MEDS: LIPITOR PO SCH (20:06)
[2019-01-18] MEDS: LEVEMIR SUBQ SCH (20:08)
[2019-01-18] MEDS: ZYLOPRIM PO SCH (20:19)
[2019-01-18] MEDS: DILAUDID IV PRN (23:01)
[2019-01-19] MEDS: PERCOCET-10 PO PRN ×3 (01:43→16:30)
[2019-01-19] MEDS: VANCOMYCIN 1,800 MG in NS 250 ML IV SCH (01:44)
[2019-01-19] MEDS: DUONEB (A & A) INH SCH ×4 (03:00→21:05)
[2019-01-19] MEDS: ZOFRAN IV PRN (04:20)
[2019-01-19] MEDS: DILAUDID IV PRN (04:20)
[2019-01-19] MEDS: PRILOSEC PO SCH (06:35)
[2019-01-19 07:07] LABS: BASO# 0.03 X1000 (0.0-0.2); BASO% 0.3 % (0.0-0.8); EOS# 1.91 X1000 (0.0-0.7); EOS% 16.6 % (0.0-10.0); HEMATOCRIT 29.6 % (37.0-47.0); HEMOGLOBIN 8.7 g/dL (12.0-16.0); IMM GRAN# 0.05 X1000 (0.0-0.04); IMM GRAN% 0.4 % (0.0-0.5); LYMPH# 1.32 X1000 (1.2-3.4); LYMPH% 11.5 % (20.5-51.1); MCH 28.2 PG (27-31); MCHC 29.4 g/dL (33-37); MCV 96.1 FL (81-99); MONO# 1.04 X1000 (0.11-0.59); NEUT# 7.16 X1000 (1.4-6.5); NEUT% 62.2 % (42.2-75.2); PLT 465 X1000 (130-400); RBC 3.08 XMIL (4.2-5.4); RDW 16.6 % (11.5-14.5); WBC 11.51 X1000 (4.8-10.8)
[2019-01-19 07:30] LABS: AGAP 9; BUN 13 mg/dL (8-22); CALCIUM 9.2 mg/dL (8.8-10.2); CHLORIDE 97 mmol/L (98-107); COSMO 284; CREATININE 0.8 mg/dL (0.5-0.9); ESTIMATED GFR > 60; GLUCOSE 116 mg/dL (70-104); SODIUM 142 mmol/L (136-145); TCO2 36 mmol/L (25-35)
[2019-01-19] MEDS: PLETAL PO SCH ×2 (09:16→21:28)
[2019-01-19] MEDS: FERROUS SULFATE PO SCH (09:17)
[2019-01-19] MEDS: VALTREX PO SCH ×2 (09:17→21:27)
[2019-01-19] MEDS: ASPIRIN PO SCH (09:17)
[2019-01-19] MEDS: VITAMIN D PO SCH (09:17)
[2019-01-19] MEDS: NEURONTIN PO SCH ×4 (09:17→21:27)
[2019-01-19] MEDS: COREG PO SCH ×2 (09:17→21:27)
[2019-01-19] MEDS: WELLBUTRIN XL PO SCH (09:17)
[2019-01-19] MEDS: ANTIVERT PO SCH ×2 (09:17→21:28)
[2019-01-19] MEDS: FOLIC ACID PO SCH (09:17)
[2019-01-19] MEDS: LACTULOSE PO SCH ×2 (09:18→21:27)
[2019-01-19] MEDS: AQUAPHOR OINTMENT TOP SCH (09:18)
[2019-01-19] MEDS: MIRALAX PO SCH (09:18)
[2019-01-19] MEDS: MAXIPIME 2 GM in NS 100 ML IV SCH (12:41)
--- NOTE | 2019-01-19 13:13 | ECHO REPORT ---
ORDER DATE: 01/18/2019 MEASUREMENTS: Septal thickness 1.0, left ventricular internal diameter in diastole 4.4, posterior wall thickness 0.9, aortic root 1.9, left atrium 3.6. SUMMARY: 1. Technically difficult study due to limited acoustic window quality. Intravenous echocontrast agent Optison was utilized to enhance endocardial definition. 2. Aortic valve has been replaced with a bioprosthesis. Aortic valve was not well imaged but aortic valve opening appears to be adequate. Peak gradient across the aortic valve is 27 mmHg with a mean gradient of 16 mmHg. The calculated aortic valve area is greater than 1.5 cm squared. Adequate prosthetic valve function is suggested. Mitral annular calcification demonstrated with mild mitral regurgitation. Tricuspid valve is without evidence of structural abnormality with mild tricuspid regurgitation. The estimated systolic PA pressure by Doppler is 45 mmHg, suggesting mild pulmonary hypertension. Pulmonic valve is without evidence of structural abnormality. The aortic root is normal in size. 3. Normal left ventricular chamber size with mild concentric left ventricular hypertrophy suggested. The estimated left ventricular ejection fraction appears to be at least 65%. No regional wall motion abnormalities are evident. Doppler suggests grade 1 left ventricular diastolic dysfunction. Left atrium is mildly enlarged on 2-dimensional images. The right atrium and right ventricle are normal in size with grossly preserved right ventricular systolic function. 4. No pericardial effusion. 5. Appearance of inferior vena cava suggests normal central venous pressure. cc: MD Joel Thrasher MD
--- NOTE | 2019-01-19 14:31 | INFECTIOUS DISEASE PROGRESS NO ---
DATE: 01/19/2019 PRESENT ILLNESS: The patient has methicillin-resistant Staph aureus cellulitis of both feet. She also has a pulmonary infiltrate. Based on her procalcitonin level of 0.13, it would be unlikely that this is pneumonia, more likely that it is atelectasis. 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 MEDICATIONS: The patient is receiving vancomycin and cefepime for the patient's foot infection and for the possibility of pneumonia. This is the third day of treatment with both agents. The patient also is on Valtrex. This is day 1 of treatment for the patient's herpetic cold sores. PHYSICAL EXAMINATION: Vital Signs: Temperature is 98.1 degrees, pulse 77, respirations 15, blood pressure 117/48. General: This is an obese and ill-appearing elderly female. She is in no acute distress. Head/eyes/ears/nose/throat: She can hear my spoken words and see near objects. There is no drainage from the nose or ears. The patient's herpetic lesions on her lips have almost all disappeared. There are no more vesicles remaining but there are some ulcerated lesions where the vesicle was. Lungs: Clear to auscultation. Cardiovascular: Regular heart rate. Abdomen: Soft and nontender. Extremities: Both feet have dressings on them. The dressings are intact. LAB AND X-RAY: The patient's CBC today shows a white count of 11,510, hemoglobin 8.7, and platelet count 465,000. Creatinine 0.8. GFR is greater than 60. Procalcitonin level was 0.13. Culture from the patient's left foot grew methicillin-resistant Staph aureus. Chest x-ray shows possible pneumonia or atelectasis. ASSESSMENT AND PLAN: The patient has methicillin-resistant Staph aureus feet infection. I think it is unlikely that she actually has a pneumonia. I think it is more likely that she has atelectasis and finally, the patient has herpetic cold sores on the patient's lips which are healing well. The plan is to continue with the current medications, namely vancomycin and cefepime IV and Valtrex p.o. COMORBIDITIES: The patient is elderly, she has diabetes mellitus and metastatic breast cancer which is being treated with chemotherapy. cc: Magdi Brice MD
[2019-01-19] MEDS: BENADRYL PO PRN (14:55)
[2019-01-19] MEDS: LOVENOX SUBQ SCH (14:56)
--- NOTE | 2019-01-19 15:38 | PROGRESS NOTE ---
DATE: 01/19/2019 SUBJECTIVE: Patient has no major complaints. She looks much better today. Yesterday she looked fairly miserable but she looks a lot brighter today. OBJECTIVE: Blood pressure is 117/48, heart rate 77, respiratory rate 15, temperature 98.1 degrees, 95% on 3 L.Cardiovascular: Regular rate and rhythm. Pulmonary: Bilateral breath sounds. Clear to auscultation. GI: Soft, nontender, nondistended. Bowel sounds are positive. LABORATORY DATA: White count 11, hemoglobin and hematocrit 8 and 29, platelets 465,000. Basic was normal today. PROBLEM LIST: 1. Methicillin-resistant Staphylococcus aureus cellulitis. She is on vancomycin. Dr. Brice is following. She is on vancomycin and cefepime. Dr. Brice feels it is unlikely that this is pneumonia but we are going to continue cefepime for the time being. I think her white count did bump back up a little bit but clinically she is much improved. 2. Pneumonia. She is on cefepime. Will discuss with Dr. Brice p.o. options. 3. Diabetes is stable on her current medications. 4. Hypokalemia is actually normal today. We will continue to follow. 5. Metastatic breast cancer is stable. DISPOSITION: Anticipate or we are trying to get her home, she has not really done very much ambulation though I think the only PT note I saw the most recent had been 3 feet but I think she did do a little bit more yesterday 20 feet so that is a bit better so I am hoping to discharge her as soon as tomorrow but it may be a couple days, will see how things are going. cc: Joel Pérez MD
[2019-01-19] MEDS: LIPITOR PO SCH (21:27)
[2019-01-19] MEDS: LEVEMIR SUBQ SCH (21:28)
[2019-01-19] MEDS: ZYLOPRIM PO SCH (21:28)
[2019-01-20] MEDS: PERCOCET-10 PO PRN ×4 (00:37→22:26)
[2019-01-20] MEDS: TYLENOL PO PRN (00:37)
[2019-01-20] MEDS: MAXIPIME 2 GM in NS 100 ML IV SCH ×2 (00:37→12:37)
[2019-01-20] MEDS: DUONEB (A & A) INH SCH ×4 (03:00→21:10)
[2019-01-20] MEDS: BENADRYL PO PRN ×3 (04:21→23:58)
[2019-01-20] MEDS: PRILOSEC PO SCH (06:10)
[2019-01-20 06:38] LABS: BASO# 0.03 X1000 (0.0-0.2); BASO% 0.3 % (0.0-0.8); EOS% 6.8 % (0.0-10.0); HEMATOCRIT 28.1 % (37.0-47.0); HEMOGLOBIN 8.3 g/dL (12.0-16.0); IMM GRAN# 0.06 X1000 (0.0-0.04); IMM GRAN% 0.6 % (0.0-0.5); LYMPH# 1.39 X1000 (1.2-3.4); LYMPH% 13.5 % (20.5-51.1); MCH 28.1 PG (27-31); MCHC 29.5 g/dL (33-37); MCV 95.3 FL (81-99); MONO# 0.78 X1000 (0.11-0.59); MONO% 7.6 % (1.7-9.3); MPV 9.1 FL (7.4-10.4); NEUT# 7.33 X1000 (1.4-6.5); NEUT% 71.2 % (42.2-75.2); PLT 472 X1000 (130-400); RBC 2.95 XMIL (4.2-5.4); WBC 10.29 X1000 (4.8-10.8)
[2019-01-20 06:58] LABS: AGAP 11; BUN 15 mg/dL (8-22); CALCIUM 8.8 mg/dL (8.8-10.2); CHLORIDE 98 mmol/L (98-107); COSMO 284; CREATININE 0.9 mg/dL (0.5-0.9); ESTIMATED GFR > 60; GLUCOSE 159 mg/dL (70-104); POTASSIUM 4.2 mmol/L (3.5-5.1); SODIUM 140 mmol/L (136-145); TCO2 31 mmol/L (25-35)
[2019-01-20] MEDS: NEURONTIN PO SCH ×4 (09:40→22:33)
[2019-01-20] MEDS: VITAMIN D PO SCH (09:40)
[2019-01-20] MEDS: ASPIRIN PO SCH (09:41)
[2019-01-20] MEDS: COREG PO SCH ×2 (09:41→22:36)
[2019-01-20] MEDS: VALTREX PO SCH ×2 (09:41→22:36)
[2019-01-20] MEDS: ANTIVERT PO SCH ×2 (09:41→22:36)
[2019-01-20] MEDS: FOLIC ACID PO SCH (09:41)
[2019-01-20] MEDS: PLETAL PO SCH ×2 (09:42→22:36)
[2019-01-20] MEDS: WELLBUTRIN XL PO SCH (09:43)
[2019-01-20] MEDS: FERROUS SULFATE PO SCH (09:43)
[2019-01-20] MEDS ORDERED: VANCOMYCIN 1,700 MG in NS 250 ML IV SCH (10:00)
[2019-01-20] MEDS: LACTULOSE PO SCH ×2 (10:09→22:30)
[2019-01-20] MEDS: MIRALAX PO SCH (10:11)
[2019-01-20] MEDS: AQUAPHOR OINTMENT TOP SCH (10:11)
[2019-01-20] MEDS ORDERED: LASIX IV ONE (12:03)
--- NOTE | 2019-01-20 12:03 | Diag Imaging Result Doc PS360 ---
EXAM: CHEST-1 VIEW HISTORY: pneumonia TECHNIQUE: Chest single view COMPARISON: 01/17/2019 FINDINGS: The lungs are well expanded. The heart is mildly prominent. No change in the right jugular portacatheter. Sternal wires are present. There are faint bilateral infiltrates. No effusion identified. IMPRESSION: Bilateral infiltrates or pulmonary edema similar to the prior exam. Electronically signed by Mauricio Paul 01/20/2019 12:01 PM
--- NOTE | 2019-01-20 12:36 | PROGRESS NOTE ---
DATE: 01/20/2019 SUBJECTIVE: She is complaining of shortness of breath again today and chest tightness. She had been doing well. Yesterday, she did very well. OBJECTIVE: She had small temperature of 100.5 degrees yesterday, currently afebrile. Heart rate 85, respiratory rate 18, blood pressure 120/52, 97% on 3 L. Cardiovascular: Regular rate and rhythm. Pulmonary: Bilateral breath sounds diminished at the bases and rales at the bases. GI: Soft, nontender, nondistended. Bowel sounds were positive. Laboratory Data: White count is 10, hemoglobin and hematocrit 8 and 28, platelets 472,000. BUN and creatinine 15 and 0.9. PROBLEM LIST: 1. Methicillin-resistant Staphylococcus aureus cellulitis. She is currently on, I believe, vancomycin per Dr. Brice's recommendations and cefepime. I think that issue is stabilizing. Should be able to go home from that standpoint. 2. Dyspnea, hypoxic respiratory failure, likely a combination of possible pneumonia versus pulmonary edema. Her echocardiogram shows a diastolic dysfunction. She has a prosthetic valve, but that is stable. Ejection fraction is 65%. No wall motion abnormalities. I do not think this is a coronary artery disease issue. We have ruled her out for pulmonary embolism. Her CT angiogram was negative and that test was more consistent with pulmonary edema which we diuresed her for several days and then she, yesterday, got worse. We are going to try to diurese her again today, maybe at a lower dose and see how she does. 3. Pneumonia is putative. Dr. Brice does not feel completely like this is pneumonia. Her procalcitonin level is normal. I am going to get a pulmonary opinion because of persistent hypoxia. If they feel we need to get cardiology involved, that is fine but at this time, I am not entirely sure it is an acute ischemic issue but it may be a diastolic heart failure issue. 4. Hypokalemia, stable. 5. Metastatic breast cancer. We will let Dr. Doss know she is here. I think that is her primary oncology. DISPOSITION: I think we will be able do home health, home PT on her. I think she progressed pretty well with PT today. I have not seen their note but after that, she did get short of breath which is understandable I guess, so we will see how she is doing. cc: Joel Pérez MD
[2019-01-20] MEDS: ZOFRAN IV PRN ×2 (12:39→22:25)
--- NOTE | 2019-01-20 13:06 | EKG Report ---
Test Performed on : 01/20/2019 12:44:19 PM Test Reason : chest pain Blood Pressure : / mmHG Vent. Rate : 080 BPM Atrial Rate : 080 BPM P-R Int : 204 ms QRS Dur : 082 ms QT Int : 396 ms P-R-T Axes : 051 028 054 degrees QTc Int : 456 ms Normal sinus rhythm. Anterior infarct , age undetermined Abnormal ECG When compared with ECG of 15-JAN-2019 06:09, No significant change was found Confirmed by Geo BEY, Juan F Driscoll ([id number]) on 01/21/2019 9:06:24 AM
--- NOTE | 2019-01-20 16:59 | INFECTIOUS DISEASE PROGRESS NO ---
DATE: 01/20/2019 PRESENT ILLNESS: The patient has methicillin-resistant Staph aureus cellulitis of her feet. She also has a pulmonary infiltrate that could be due to either due to pneumonia or pulmonary edema. Based on the appearance of the infiltrate and the fact that the procalcitonin level is only 0.13, I suspect that it is due to pleural fluid and not pneumonia. 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 MEDICATIONS: Currently the patient is on a combination of vancomycin and cefepime for her foot infection and her pulmonary process. The patient also is taking Valtrex for herpetic cold sores. PHYSICAL EXAMINATION: Vital Signs: Temperature is 98.2 degrees, pulse 78, respirations 16, blood pressure 122/57. General: This is an obese and somewhat ill-appearing elderly female. She is in no acute distress. Head/eyes/ears/nose/throat: She can hear my spoken words and see near objects. She does not have any drainage from her nose or ears. The herpetic lesions on her lips have cleared. Lungs: Clear to auscultation. Cardiovascular: Regular heart rate. Abdomen: Soft and nontender. Thorax: Patient has a Port-A-Cath on the right side. The site is not erythematous, swollen or tender. Extremities: I removed the patient's dressings. Both of her feet look much better. They are less swollen. They are not erythematous and some of the cracks in the skin are healing. LAB AND X-RAY: Culture from the patient's foot grew methicillin-resistant Staph aureus. CBC shows a white count of 10,290, hemoglobin 8.3, and platelet count 472,000. Creatinine 0.9. GFR is greater than 60. Blood cultures are sterile. Chest x-ray shows bilateral infiltrates/pulmonary edema. ASSESSMENT AND PLAN: The patient has methicillin-resistant Staph aureus infection of her feet. I am discontinuing vancomycin and cefepime and instead have placed the patient on Septra Double Strength 1 every 12 hours. I would suggest continuing that for a total of 1 week. I think that the patient's pulmonary infiltrate is pleural fluid and I do not think it merits antimicrobial therapy. The patient's cold sores on her lips have cleared up and so I am going to discontinue Valtrex. I am signing off the patient's case now but I am available to see her on a p.r.n. basis. COMORBIDITIES: She is elderly, she is a diabetic and she has metastatic breast cancer being treated with chemotherapy. cc: Magdi Brice MD
[2019-01-20] MEDS: LOVENOX SUBQ SCH (17:20)
--- NOTE | 2019-01-20 21:48 | PULMONOLOGY CONSULTATION ---
DATE: 01/20/2019 REQUESTING PHYSICIAN: Joel Pérez MD REASON FOR CONSULTATION: Persistent hypoxemia and dyspnea. HISTORY OF PRESENT ILLNESS: Ms. Stinson is a 68-year-old white female with a 30 pack-year history for tobacco (nonsmoker for greater than 20 years), 15-year history for diabetes, history of metastatic breast cancer, with long history of severe peripheral vascular disease and wounds. The patient does not remember coming to the hospital. The patient reports she was having periods of intermittent severe weakness for 2 to 3 days prior to coming to the hospital. She was found unresponsive by family members with acute hypoxemia when the EMS arrived. Family reported she did have periods of body aches and chills, although the patient does not recall. She was brought to the emergency room and had a fever as high as 102.9 degrees along with leukocytosis. Subsequent wound cultures revealed methicillin-resistant Staphylococcus aureus in her left foot. The patient has been initiated on antibiotics by Dr. Brice with clinical improvement in her white blood count and her mental status. The patient is on nocturnal oxygen at home. She has required up to 4 L per nasal cannula during this hospitalization and is currently on 3 L with an oxygen saturation of 96%. She underwent a pulmonary angiogram shortly after admission, which revealed bilateral infiltrates with small pleural effusions. Chest x-ray today was unchanged. The patient reports she does have gastroesophageal reflux. She will eat her largest meal in the evening. She will eat before she goes to bed. She has a slightly productive cough. PAST MEDICAL HISTORY: 1. A 30-pack year history for tobacco. 2. Metastatic breast cancer. 3. Peripheral vascular disease. 4. Systolic heart failure. 5. Coronary artery disease status post bypass grafting. 6. Status post aortic valve replacement. 7. Diabetes mellitus. 8. Dyslipidemia. SOCIAL HISTORY: Prior tobacco use as per above, no alcohol use listed. REVIEW OF SYSTEMS: Notable for generalized weakness, periodic weakness in her legs, lower extremity ulcerations for approximately 2 years. PHYSICAL EXAMINATION: General: Reveals an obese white female laying in bed. She is awake, alert, and conversant. She had a slight rattle to her cough. Cardiac Exam: S1, S2. Abdomen: Soft and without hepatosplenomegaly. Respiratory: Reveal crackles in the bases. Extremities: Reveal loss of hair and a shininess to the skin with evidence of chronic vascular insufficiency. Wound dressings are in place. LABORATORY DATA: Sodium 140, potassium 4.2, chloride 98, bicarbonate 31, BUN 15, creatinine 0.9. Chest x-ray today reveals faint bilateral infiltrates without significant change. IMPRESSION: A 30-year-old with nocturnal respiratory failure, diabetes mellitus, gastroesophageal reflux disease who presented with acute hypoxemic respiratory failure, bilateral infiltrates, altered mental status, methicillin resistant Staphylococcus aureus diabetic ulcer, acute hypoxemic respiratory failure on the background of reflux. I suspect that she most likely had an acute lung injury, which has led to slight increased oxygen requirements and bilateral infiltrates. Possibility of minor aspiration pneumonia is also in the differential. No additional pulmonary workup recommended at this juncture. RECOMMENDATIONS: 1. Continue bronchial hygiene with incentive spirometry and mobilize patient as tolerated. 2. Continue antibiotics per Infectious Disease. 3. Wean oxygen as tolerated. She may require oxygen transiently at the time of discharge. 4. Reflux precautions at the time of discharge. The patient was encouraged to eat her smallest meal in the evening, not snack before bedtime, and maintain a head of the bed elevated at 30 degrees. cc: Eldon Fragoso MD
[2019-01-20] MEDS: LEVEMIR SUBQ SCH (22:32)
[2019-01-20] MEDS: SEPTRA DS PO SCH (22:34)
[2019-01-20] MEDS: LIPITOR PO SCH (22:35)
[2019-01-20] MEDS: ZYLOPRIM PO SCH (22:35)
[2019-01-21] MEDS: DUONEB (A & A) INH SCH ×4 (04:00→22:42)
[2019-01-21] MEDS: PRILOSEC PO SCH (06:23)
[2019-01-21] MEDS: PERCOCET-10 PO PRN ×2 (06:26→16:00)
[2019-01-21 07:12] LABS: BASO# 0.03 X1000 (0.0-0.2); BASO% 0.2 % (0.0-0.8); EOS# 1.16 X1000 (0.0-0.7); EOS% 9.5 % (0.0-10.0); HEMATOCRIT 30.1 % (37.0-47.0); HEMOGLOBIN 8.8 g/dL (12.0-16.0); IMM GRAN# 0.09 X1000 (0.0-0.04); IMM GRAN% 0.7 % (0.0-0.5); LYMPH# 1.38 X1000 (1.2-3.4); LYMPH% 11.3 % (20.5-51.1); MCH 27.6 PG (27-31); MCHC 29.2 g/dL (33-37); MCV 94.4 FL (81-99); MONO# 1.08 X1000 (0.11-0.59); MONO% 8.9 % (1.7-9.3); MPV 9.1 FL (7.4-10.4); NEUT# 8.44 X1000 (1.4-6.5); NEUT% 69.4 % (42.2-75.2); PLT 529 X1000 (130-400); RBC 3.19 XMIL (4.2-5.4); RDW 17.2 % (11.5-14.5); WBC 12.18 X1000 (4.8-10.8)
[2019-01-21 07:29] LABS: AGAP 11; BUN 11 mg/dL (8-22); CALCIUM 8.9 mg/dL (8.8-10.2); CHLORIDE 96 mmol/L (98-107); COSMO 277; CREATININE 0.8 mg/dL (0.5-0.9); ESTIMATED GFR > 60; GLUCOSE 102 mg/dL (70-104); POTASSIUM 3.6 mmol/L (3.5-5.1); SODIUM 139 mmol/L (136-145); TCO2 32 mmol/L (25-35)
[2019-01-21] MEDS: SEPTRA DS PO SCH ×2 (08:30→20:41)
[2019-01-21] MEDS: VITAMIN D PO SCH (08:31)
[2019-01-21] MEDS: NEURONTIN PO SCH ×3 (08:31→19:43)
[2019-01-21] MEDS: FERROUS SULFATE PO SCH (08:31)
[2019-01-21] MEDS: ANTIVERT PO SCH ×2 (08:31→20:42)
[2019-01-21] MEDS: ASPIRIN PO SCH (08:31)
[2019-01-21] MEDS: PLETAL PO SCH ×2 (08:31→20:41)
[2019-01-21] MEDS: COREG PO SCH ×2 (08:31→20:41)
[2019-01-21] MEDS: WELLBUTRIN XL PO SCH (08:31)
[2019-01-21] MEDS: FOLIC ACID PO SCH (08:31)
[2019-01-21] MEDS: MIRALAX PO SCH (08:34)
[2019-01-21] MEDS: LACTULOSE PO SCH ×2 (08:34→20:42)
--- NOTE | 2019-01-21 10:41 | Extremity Venous Study ---
PROCEDURE NAME: Venous U/S Bilateral Legs - 01/15/2019 REFERRING PHYSICIANS: Joel Pérez MD IDENTIFYING INFORMATION: 68-year-old female. PAINT POURER: Ary Thomas RVT. INDICATIONS: Bilateral lower extremity pain and swelling suggestive of deep venous thrombosis. FINDINGS: The right common femoral vein and its branches, deep and superficial femoral veins were satisfactorily imaged. They had flow through them and were compressible. The right popliteal vein and the deep veins below the right knee were all compressible and had flow through them. The superficial veins of the right lower extremity were compressible throughout their length. The left common femoral vein and its branches, deep and superficial femoral veins were also satisfactorily imaged. They had flow through them and were compressible. Left popliteal vein and the deep veins below the left knee were all compressible and had flow through them. The superficial veins of the left lower extremity were compressible throughout their length. INTERPRETATION: No evidence of acute deep or superficial venous thrombosis of the bilateral lower extremities. cc: MD Joel Mejia MD
--- NOTE | 2019-01-21 13:16 | PROGRESS NOTE ---
DATE: 01/21/2019 SUBJECTIVE: The patient is resting in bed quietly. She has no complaints at this time. She does state that she feels a little better than yesterday. OBJECTIVE: Blood pressure is 150/60, with heart rate of 93, respirations are 18, temperature is 98.4 degrees oral with O2 saturation are 93 to 96% on 2 L nasal cannula. Cardiovascular regular rate and rhythm. S1, S2 appreciated. No murmurs. She has no lower extremity edema. Calves are nontender bilateral to palpation. Peripheral pulses are palpable. Pulmonary breath sounds with rhonchi that clear to cough. Chest rises and falls symmetric with respiration chest wall is nontender to palpate gastrointestinal abdomen is soft, nontender, nondistended with bowel sounds in all 4 quadrants. Neurologic she is awake and alert and oriented. Extremities: She does have signs of chronic vascular disease bilateral having shiny skin with loss of hair. Dressings are intact bilateral feet. LABORATORY DATA: WBC is 12.1 with hemoglobin 8.8, hematocrit 30, and platelets of 529,000. Sodium 139, potassium 3.6, BUN 11, creatinine 0.8 with a glucose of 102. ASSESSMENT AND PLAN: 1. Methicillin-resistant Staphylococcus aureus cellulitis. We will continue vancomycin and cefepime and antibiotic coverage will be per Dr. Magdi Brice. 2. Dyspnea, hypoxic respiratory failure. Pulmonology has been consulted. We will continue with oxygen supplementation, pulmonary toilet. 3. Metastatic breast cancer followed by Dr. Doss. 4. Bilateral pulmonary infiltrates. We will continue with the current regimen. 5. Gastroesophageal reflux disease with reflux precaution. We will continue her proton pump inhibitor. Dictated by MARGY Arias for Za Neumann MD cc: MARGY Arias MD
[2019-01-21] MEDS: LOVENOX SUBQ SCH (15:56)
[2019-01-21] MEDS: AQUAPHOR OINTMENT TOP SCH (15:56)
[2019-01-21] MEDS: BENADRYL PO PRN (16:00)
[2019-01-21] MEDS: LIPITOR PO SCH (20:41)
[2019-01-21] MEDS: ZYLOPRIM PO SCH (20:41)
[2019-01-21] MEDS: TYLENOL PO PRN (20:41)
[2019-01-21] MEDS: LEVEMIR SUBQ SCH (20:42)
[2019-01-22] MEDS: BENADRYL PO PRN ×3 (00:41→18:55)
[2019-01-22] MEDS: PERCOCET-10 PO PRN ×3 (00:41→18:55)
[2019-01-22] MEDS: NEURONTIN PO SCH ×5 (00:42→22:31)
[2019-01-22] MEDS: DUONEB (A & A) INH SCH ×4 (04:29→21:05)
[2019-01-22] MEDS: PRILOSEC PO SCH (07:10)
[2019-01-22 07:44] LABS: BASO# 0.05 X1000 (0.0-0.2); BASO% 0.4 % (0.0-0.8); EOS# 1.35 X1000 (0.0-0.7); EOS% 11.5 % (0.0-10.0); HEMATOCRIT 28.3 % (37.0-47.0); HEMOGLOBIN 8.3 g/dL (12.0-16.0); IMM GRAN# 0.11 X1000 (0.0-0.04); IMM GRAN% 0.9 % (0.0-0.5); LYMPH# 1.58 X1000 (1.2-3.4); LYMPH% 13.5 % (20.5-51.1); MCH 28.1 PG (27-31); MCHC 29.3 g/dL (33-37); MCV 95.9 FL (81-99); MONO# 1.42 X1000 (0.11-0.59); MONO% 12.1 % (1.7-9.3); NEUT# 7.23 X1000 (1.4-6.5); NEUT% 61.6 % (42.2-75.2); PLT 488 X1000 (130-400); RBC 2.95 XMIL (4.2-5.4); RDW 17.2 % (11.5-14.5); WBC 11.74 X1000 (4.8-10.8)
[2019-01-22 07:57] LABS: AGAP 9; BUN 11 mg/dL (8-22); CALCIUM 8.3 mg/dL (8.8-10.2); CHLORIDE 100 mmol/L (98-107); COSMO 278; CREATININE 0.8 mg/dL (0.5-0.9); ESTIMATED GFR > 60; GLUCOSE 93 mg/dL (70-104); POTASSIUM 3.6 mmol/L (3.5-5.1); SODIUM 140 mmol/L (136-145); TCO2 31 mmol/L (25-35)
[2019-01-22] MEDS: COREG PO SCH ×2 (09:37→22:31)
[2019-01-22] MEDS: FOLIC ACID PO SCH (09:37)
[2019-01-22] MEDS: WELLBUTRIN XL PO SCH (09:37)
[2019-01-22] MEDS: PLETAL PO SCH ×2 (09:37→22:31)
[2019-01-22] MEDS: ANTIVERT PO SCH ×2 (09:37→22:31)
[2019-01-22] MEDS: FERROUS SULFATE PO SCH (09:37)
[2019-01-22] MEDS: VITAMIN D PO SCH (09:37)
[2019-01-22] MEDS: MIRALAX PO SCH (09:38)
[2019-01-22] MEDS: SEPTRA DS PO SCH ×2 (09:38→22:31)
[2019-01-22] MEDS: ASPIRIN PO SCH (09:38)
[2019-01-22] MEDS: AQUAPHOR OINTMENT TOP SCH (09:38)
[2019-01-22] MEDS: LACTULOSE PO SCH ×2 (09:39→22:34)
[2019-01-22] MEDS ORDERED: DIFLUCAN PO ONE (14:26)
--- NOTE | 2019-01-22 17:56 | PROGRESS NOTE ---
DATE: 01/22/2019 SUBJECTIVE: The patient is resting comfortably in bed. No acute events noted overnight. OBJECTIVE: Vital Signs: Temperature 98.4, blood pressure 118/56, heart rate 85, respirations 16, O2 saturation 96% on nasal cannula. General: This is a chronically ill- appearing elderly female lying in bed in no acute distress. Heart: S1, S2 normal. Regular rate and rhythm. Lungs: Equal air entry bilaterally. No crackles. No rales. Abdomen: Positive bowel sounds. Soft, nontender, nondistended. Extremities: No edema. No cyanosis. Neurologic: The patient is alert and oriented x3. LABS: White blood cell count 11, hemoglobin 8.3, hematocrit 28, platelets 488. Sodium 140, potassium 3.6, chloride 100, CO2 of 31. ASSESSMENT AND PLAN: 1. Acute hypoxemic respiratory failure. Continue with supplemental oxygen and pulmonary toiletry. 2. Bilateral foot cellulitis secondary to methicillin-resistant Staphylococcus aureus. Continue on . 3. Metastatic breast cancer. Aware. 4. Anemia. The patient's hemoglobin and hematocrit are a little bit lower today. We will continue to monitor this closely. 5. Diabetes mellitus type 2. Continue on sliding scale insulin and Levemir. 6. Hypertension. Continue on Coreg. 7. Disposition. The patient is interested in going to [facility] for inpatient rehab. [facility] is working on placement. cc: Za Neumann MD MTDD
[2019-01-22] MEDS: GYNE-LOTRIMIN VAGINAL CREAM VAG SCH (18:42)
[2019-01-22] MEDS: LOVENOX SUBQ SCH (18:42)
[2019-01-22] MEDS: LIPITOR PO SCH (22:31)
[2019-01-22] MEDS: ZYLOPRIM PO SCH (22:31)
[2019-01-22] MEDS: LEVEMIR SUBQ SCH (22:41)
[2019-01-23] MEDS: DUONEB (A & A) INH SCH ×4 (05:31→21:31)
[2019-01-23] MEDS: PRILOSEC PO SCH (06:16)
[2019-01-23] MEDS: PERCOCET-10 PO PRN ×3 (06:17→23:07)
[2019-01-23 07:11] LABS: HEMATOCRIT 30.6 % (37.0-47.0); HEMOGLOBIN 9.1 g/dL (12.0-16.0); RBC 3.22 XMIL (4.2-5.4); WBC 11.47 X1000 (4.8-10.8)
[2019-01-23 07:12] LABS: BASO# 0.04 X1000 (0.0-0.2); BASO% 0.3 % (0.0-0.8); EOS# 1.15 X1000 (0.0-0.7); IMM GRAN# 0.13 X1000 (0.0-0.04); IMM GRAN% 1.1 % (0.0-0.5); LYMPH% 12.2 % (20.5-51.1); MCH 28.3 PG (27-31); MCHC 29.7 g/dL (33-37); MONO# 1.08 X1000 (0.11-0.59); MONO% 9.4 % (1.7-9.3); NEUT# 7.67 X1000 (1.4-6.5); PLT 506 X1000 (130-400); RDW 17.7 % (11.5-14.5)
[2019-01-23 07:43] LABS: CHLORIDE 98 mmol/L (98-107); POTASSIUM 3.5 mmol/L (3.5-5.1); SODIUM 142 mmol/L (136-145)
[2019-01-23 07:44] LABS: AGAP 13; BUN 11 mg/dL (8-22); CALCIUM 8.8 mg/dL (8.8-10.2); COSMO 282; CREATININE 0.9 mg/dL (0.5-0.9); ESTIMATED GFR > 60; GLUCOSE 89 mg/dL (70-104); TCO2 31 mmol/L (25-35)
[2019-01-23] MEDS: ASPIRIN PO SCH (09:09)
[2019-01-23] MEDS: SEPTRA DS PO SCH ×2 (09:09→23:04)
[2019-01-23] MEDS: FOLIC ACID PO SCH (09:09)
[2019-01-23] MEDS: PLETAL PO SCH ×2 (09:09→23:04)
[2019-01-23] MEDS: WELLBUTRIN XL PO SCH (09:09)
[2019-01-23] MEDS: VITAMIN D PO SCH (09:09)
[2019-01-23] MEDS: NEURONTIN PO SCH ×4 (09:10→23:03)
[2019-01-23] MEDS: ANTIVERT PO SCH ×2 (09:10→23:04)
[2019-01-23] MEDS: FERROUS SULFATE PO SCH (09:10)
[2019-01-23] MEDS: COREG PO SCH ×2 (09:10→23:04)
[2019-01-23] MEDS: AQUAPHOR OINTMENT TOP SCH (09:12)
[2019-01-23] MEDS: LACTULOSE PO SCH ×2 (09:12→23:06)
[2019-01-23] MEDS: MIRALAX PO SCH (09:12)
--- NOTE | 2019-01-23 12:32 | PROGRESS NOTE ---
DATE: 01/23/2019 SUBJECTIVE: The patient is resting comfortably in bed. She has no complaints. OBJECTIVE: Vital Signs: Temperature 98.1 degrees, blood pressure 171/63, heart rate 81, respirations 16, O2 saturation 98% on 3 L nasal cannula. General: This is an elderly female, lying in bed in no acute distress. Heart: S1, S2 normal. Regular rate and rhythm. Lungs: Equal air entry bilaterally. No crackles. No rales. Abdomen: Positive bowel sounds. Soft, nontender, nondistended. Extremities: There is 1+ edema. Neurologic: The patient is alert and oriented x4. LABORATORY DATA: White blood cell count 11, hemoglobin 9.1, hematocrit 30, platelets 506,000. Sodium 142, potassium 3.5, chloride 98, CO2 of 31, BUN 11, creatinine 0.9. ASSESSMENT AND PLAN: 1. Acute hypoxemic respiratory failure. Continue with supplemental oxygen. 2. Bilateral foot cellulitis secondary to methicillin-resistant Staphylococcus aureus. Continue on . 3. Anemia. Stable. 4. Metastatic breast cancer. Aware. 5. Diabetes mellitus type 2. Continue on Levemir and sliding scale insulin. 6. Hypertension. Continue on Coreg. 7. Disposition. The patient is medically stable for discharge to rehab. We are currently awaiting acceptance. cc: Za Neumann MD
[2019-01-23] MEDS: LOVENOX SUBQ SCH (14:26)
[2019-01-23] MEDS: GYNE-LOTRIMIN VAGINAL CREAM VAG SCH (14:26)
[2019-01-23] MEDS: LIPITOR PO SCH (23:03)
[2019-01-23] MEDS: LEVEMIR SUBQ SCH (23:04)
[2019-01-23] MEDS: ZYLOPRIM PO SCH (23:04)
[2019-01-23] MEDS: BENADRYL PO PRN (23:05)
[2019-01-24] MEDS: DUONEB (A & A) INH SCH ×4 (03:44→22:32)
[2019-01-24] MEDS: PERCOCET-10 PO PRN ×2 (05:42→15:21)
[2019-01-24] MEDS: PRILOSEC PO SCH (06:49)
[2019-01-24 08:30] LABS: AGAP 9; BUN 12 mg/dL (8-22); CALCIUM 8.6 mg/dL (8.8-10.2); CHLORIDE 100 mmol/L (98-107); COSMO 278; CREATININE 0.9 mg/dL (0.5-0.9); ESTIMATED GFR > 60; GLUCOSE 85 mg/dL (70-104); POTASSIUM 4.1 mmol/L (3.5-5.1); SODIUM 140 mmol/L (136-145); TCO2 31 mmol/L (25-35)
[2019-01-24] MEDS: PLETAL PO SCH ×2 (09:06→21:26)
[2019-01-24] MEDS: LACTULOSE PO SCH ×2 (09:06→21:31)
[2019-01-24] MEDS: SEPTRA DS PO SCH ×2 (09:06→21:29)
[2019-01-24] MEDS: WELLBUTRIN XL PO SCH (09:07)
[2019-01-24] MEDS: FERROUS SULFATE PO SCH (09:07)
[2019-01-24] MEDS: COREG PO SCH ×2 (09:07→21:25)
[2019-01-24] MEDS: NEURONTIN PO SCH ×4 (09:07→21:26)
[2019-01-24] MEDS: FOLIC ACID PO SCH (09:07)
[2019-01-24] MEDS: ASPIRIN PO SCH (09:07)
[2019-01-24] MEDS: VITAMIN D PO SCH (09:07)
[2019-01-24] MEDS: ANTIVERT PO SCH ×2 (09:07→21:26)
[2019-01-24] MEDS: MIRALAX PO SCH (09:07)
[2019-01-24] MEDS: GYNE-LOTRIMIN VAGINAL CREAM VAG SCH (09:08)
[2019-01-24] MEDS: AQUAPHOR OINTMENT TOP SCH (09:08)
[2019-01-24] MEDS ORDERED: SORBITOL PO ONE (10:50)
[2019-01-24] MEDS: ZOFRAN IV PRN (11:00)
[2019-01-24] MEDS: PERICOLACE PO SCH ×2 (11:01→21:31)
[2019-01-24] MEDS: LOVENOX SUBQ SCH (15:20)
[2019-01-24] MEDS: LIPITOR PO SCH (21:25)
[2019-01-24] MEDS: ZYLOPRIM PO SCH (21:26)
[2019-01-24] MEDS: LEVEMIR SUBQ SCH (21:27)
--- NOTE | 2019-01-24 22:56 | PROGRESS NOTE ---
DATE: 01/24/2019 SUBJECTIVE: The patient is resting comfortably in bed. No acute events noted overnight. OBJECTIVE: Vital Signs: Temperature 98.1, blood pressure 129/46, heart rate 81, respirations 16, O2 saturations 96% on 2 L nasal cannula. General: This is a chronically ill- appearing, elderly female, lying in bed in no acute distress. Heart: S1, S2 normal. Lungs: Coarse breath sounds bilaterally. Abdomen: Positive bowel sounds. Soft, nontender, nondistended. Extremities: Both feet are wrapped in a clean dry dressing. Neurologic: The patient is alert and oriented x3. LABS: Reviewed. ASSESSMENT AND PLAN: 1. Acute hypoxemic respiratory failure. Continue with supplemental oxygen and bronchodilator therapy. 2. Bilateral foot cellulitis secondary to methicillin-resistant Staphylococcus aureus. Continue on . 3. Metastatic breast cancer. Aware. 4. Diabetes mellitus type 2. Continue on Levemir and sliding scale insulin. 5. Hypertension. Continue on Coreg. 6. Disposition. The patient will be discharged to rehab once a bed is available. Continue with physical therapy. cc: Za Neumann MD MTDD
[2019-01-25] MEDS: PERCOCET-10 PO PRN ×4 (02:30→21:33)
[2019-01-25] MEDS: DUONEB (A & A) INH SCH ×4 (03:57→21:42)
[2019-01-25] MEDS: PRILOSEC PO SCH (06:50)
--- NOTE | 2019-01-25 07:00 | Diag Imaging Result Doc PS360 ---
EXAM: CHEST-PORTABLE 01/25/2019 HISTORY: dyspnea TECHNIQUE: AP portable at 0610 COMMENT: The inspiration is less optimal than on 01/20/2019. The left hemidiaphragm is obscured which was not the case previously. Otherwise are has been no appreciable change. IMPRESSION: Left lower lobe atelectasis and/or pneumonia. Mild pulmonary edema. Electronically signed by Teo Perla 01/25/2019 6:57 AM
[2019-01-25 07:53] LABS: HEMATOCRIT 30.6 % (37.0-47.0); HEMOGLOBIN 8.9 g/dL (12.0-16.0); MCH 28.3 PG (27-31); MCHC 29.1 g/dL (33-37); MCV 97.5 FL (81-99); MPV 9.1 FL (7.4-10.4); RBC 3.14 XMIL (4.2-5.4); RDW 18.1 % (11.5-14.5); WBC 7.46 X1000 (4.8-10.8)
[2019-01-25] MEDS: LACTULOSE PO SCH ×2 (08:16→21:34)
[2019-01-25] MEDS: NEURONTIN PO SCH ×4 (08:16→20:50)
[2019-01-25] MEDS: PLETAL PO SCH ×2 (08:16→20:50)
[2019-01-25] MEDS: COREG PO SCH ×2 (08:17→20:50)
[2019-01-25] MEDS: WELLBUTRIN XL PO SCH (08:17)
[2019-01-25] MEDS: FERROUS SULFATE PO SCH (08:17)
[2019-01-25] MEDS: VITAMIN D PO SCH (08:17)
[2019-01-25] MEDS: ANTIVERT PO SCH ×2 (08:17→20:50)
[2019-01-25] MEDS: ASPIRIN PO SCH (08:17)
[2019-01-25 08:18] LABS: AGAP 10; BUN 11 mg/dL (8-22); CALCIUM 8.8 mg/dL (8.8-10.2); CHLORIDE 102 mmol/L (98-107); COSMO 280; CREATININE 0.9 mg/dL (0.5-0.9); ESTIMATED GFR > 60; GLUCOSE 83 mg/dL (70-104); POTASSIUM 4.7 mmol/L (3.5-5.1); SODIUM 141 mmol/L (136-145); TCO2 29 mmol/L (25-35)
[2019-01-25] MEDS: FOLIC ACID PO SCH (08:18)
[2019-01-25] MEDS: MIRALAX PO SCH (08:18)
[2019-01-25] MEDS: AQUAPHOR OINTMENT TOP SCH (08:18)
[2019-01-25] MEDS: SEPTRA DS PO SCH ×2 (08:18→20:51)
[2019-01-25] MEDS: PERICOLACE PO SCH ×2 (08:18→20:51)
[2019-01-25] MEDS: GYNE-LOTRIMIN VAGINAL CREAM VAG SCH (08:19)
[2019-01-25] MEDS ORDERED: LASIX IV ONE (11:54)
[2019-01-25] MEDS: BENADRYL PO PRN ×2 (15:21→21:33)
[2019-01-25] MEDS: LOVENOX SUBQ SCH (15:27)
[2019-01-25] MEDS: ZYLOPRIM PO SCH (20:50)
[2019-01-25] MEDS: LIPITOR PO SCH (20:50)
[2019-01-25] MEDS: LEVEMIR SUBQ SCH (20:51)
[2019-01-26] MEDS: DUONEB (A & A) INH SCH ×4 (03:27→21:50)
[2019-01-26] MEDS: PRILOSEC PO SCH (06:08)
--- NOTE | 2019-01-26 06:59 | Diag Imaging Result Doc PS360 ---
EXAM: CHEST-PORTABLE 01/26/2019 HISTORY: abnormal exam TECHNIQUE: AP portable at 0442 COMMENT: There is cardiomegaly. Compared to 01/25/2019 there has been some clearing of the left lower lobe but otherwise the appearance the chest has not changed appreciably. There is still slight interstitial opacity over both lungs. IMPRESSION: Mild pulmonary edema. Improved left lower lobe atelectasis. Electronically signed by Teo Perla 01/26/2019 6:56 AM
--- NOTE | 2019-01-26 08:00 | PROGRESS NOTE ---
DATE: 01/26/2019 SUBJECTIVE: The patient is resting comfortably in bed. She has no complaints at this time. OBJECTIVE: Vital Signs: Temperature 98.1 degrees, blood pressure 125/41, heart rate 85, respirations 18, O2 saturation 96% on 3 L nasal cannula. General: This is an elderly female sitting up in bed in no acute distress. Heart: S1, S2, normal. Regular rate and rhythm. Lungs: Equal air entry bilaterally. No wheezing. No rales. Abdomen: Positive bowel sounds. Soft, nontender, nondistended. Extremities: Both feet are wrapped in a clean, dry dressing. LABORATORIES: White blood cell count is 7.4, hemoglobin 8.9, hematocrit 30, platelets 428,000. Sodium 141, potassium 4.7, chloride 102, CO2 29, BUN 11, creatinine 0.9, glucose 185. Chest x-ray shows pulmonary edema. ASSESSMENT AND PLAN: 1. Acute hypoxemic respiratory failure. Continue with supplemental oxygen. 2. Pulmonary edema. We will give the patient some Lasix today. 3. Bilateral foot cellulitis secondary to methicillin-resistant Staphylococcus aureus. Continue on . 4. Metastatic breast cancer. Aware. 5. Diabetes mellitus type 2. Continue on Levemir and sliding scale insulin. 6. Hypertension. Continue on Coreg. 7. Disposition. The patient will be discharged to inpatient rehab once a bed is available. cc: Za Neumann MD
--- NOTE | 2019-01-26 08:46 | PULMONOLOGY PROGRESS NOTE ---
DATE: 01/25/2019 SUBJECTIVE: The patient is awake, alert, and conversant. She denies shortness of breath. She has occasional sputum production. OBJECTIVE: Vital Signs: The patient has been afebrile over the last 24 hours. Blood pressure 123/56, heart rate 75, respiratory rate 16, oxygen saturation 95% on nasal cannula. HEENT: Pupils are equal and reactive. Oropharynx appears clear. Neck: Supple. Chest: Rhonchi bilaterally with crackles at the left base. Cardiac: S1, S2. Abdomen: Soft. Both lower extremities are wrapped and reveal chronic vascular disease. LABORATORY DATA: White blood count is now normal at 7.46, hemoglobin 8.6, platelet count 428,000. Sodium 141, potassium 4.7, chloride 102, bicarbonate 29, BUN 11, creatinine 0.9. IMPRESSION: A 68-year-old with: 1. Bilateral pneumonia. 2. Hypoxemic respiratory failure. 3. Gastroesophageal reflux disease. 4. Diabetes mellitus. 5. Aspiration pneumonia. She now has a normal white blood count. RECOMMENDATIONS: 1. Continue bronchial hygiene. 2. Continue current antibiotic regimen per Infectious Disease. 3. Wean oxygen as tolerated. 4. Strongly encourage reflux precautions. 5. Follow up chest x-ray tomorrow. cc: Eldon Fragoso MD
[2019-01-26] MEDS: ANTIVERT PO SCH ×2 (08:55→20:53)
[2019-01-26] MEDS: COREG PO SCH ×2 (08:56→20:53)
[2019-01-26] MEDS: ASPIRIN PO SCH (08:56)
[2019-01-26] MEDS: AQUAPHOR OINTMENT TOP SCH (08:56)
[2019-01-26] MEDS: FOLIC ACID PO SCH (08:56)
[2019-01-26] MEDS: SEPTRA DS PO SCH ×2 (08:56→20:53)
[2019-01-26] MEDS: NEURONTIN PO SCH ×4 (08:56→20:57)
[2019-01-26] MEDS: PERICOLACE PO SCH ×2 (08:57→22:27)
[2019-01-26] MEDS: FERROUS SULFATE PO SCH (08:57)
[2019-01-26] MEDS: WELLBUTRIN XL PO SCH (08:57)
[2019-01-26] MEDS: VITAMIN D PO SCH (08:58)
[2019-01-26] MEDS: LACTULOSE PO SCH ×2 (08:58→22:27)
[2019-01-26] MEDS: PLETAL PO SCH ×2 (08:58→20:53)
[2019-01-26] MEDS: PERCOCET-10 PO PRN ×3 (08:58→22:11)
[2019-01-26] MEDS: MIRALAX PO SCH (08:59)
[2019-01-26] MEDS: GYNE-LOTRIMIN VAGINAL CREAM VAG SCH (08:59)
[2019-01-26] MEDS: BENADRYL PO PRN ×2 (10:45→22:11)
[2019-01-26] MEDS: LOVENOX SUBQ SCH (14:33)
--- NOTE | 2019-01-26 18:00 | PULMONOLOGY PROGRESS NOTE ---
DATE: 01/26/2019 SUBJECTIVE: The patient is awake, alert, and conversant. She denies cough or sputum production. She is without specific pulmonary complaints. OBJECTIVE: Vital Signs: The patient has been afebrile for the last 24 hours. Blood pressure 136/54, heart rate 83, respiratory rate 12, oxygen saturation 97% on 2 L per nasal cannula. HEENT: Pupils are equal and reactive. Oropharynx is clear. Neck: Supple. Chest: Reveals faint crackles in the lung base. Cardiac: S1, S2. Abdomen: Soft and without hepatosplenomegaly. Extremities: Without edema. LABORATORIES: Chest x-ray reveals improvement in the left lower lobe with mild increased interstitial markings. IMPRESSION: A 68-year-old with: 1. Bilateral pneumonia. 2. Gastroesophageal reflux. 3. Hypoxemic respiratory failure. 4. Diabetes mellitus. DISCUSSION: A 68-year-old with problems outlined above. Her chest x-ray is continuing to improve without significant infiltrates. RECOMMENDATION: 1. Continue bronchial hygiene. 2. Antibiotics per Infectious Disease. 3. Wean and discontinue oxygen as tolerated. 4. Continue reflux precautions. 5. Anticipate discharge to a rehab once bed is available. cc: Eldon Fragoso MD
--- NOTE | 2019-01-26 19:03 | PROGRESS NOTE ---
DATE: 01/26/2019 SUBJECTIVE: The patient is resting comfortably in bed. She has no complaints at this time. OBJECTIVE: Vital Signs: Temperature 97.9 degrees, blood pressure 136/54, heart rate 83, respirations 12, O2 saturations 93% on room air. General: This is a chronically ill-appearing elderly female lying in bed in no acute distress. Heart: S1, S2 normal. Regular rate and rhythm. Lungs: Equal air entry bilaterally. No crackles. No rales. Abdomen: Positive bowel sounds. Soft, nontender, nondistended. Extremities: No edema. No cyanosis. Neurologic: The patient is alert and oriented x4. LABS: None. ASSESSMENT AND PLAN: 1. Bilateral foot cellulitis secondary to methicillin-resistant Staphylococcus aureus. The patient is on Septra. 2. Metastatic breast cancer. Aware. 3. Diabetes mellitus type 2. Continue on Levemir and sliding scale insulin. 4. Hypertension. Continue on Coreg. 5. Disposition. The patient will be discharged to inpatient rehab once a bed is available. cc: Za Neumann MD MTDD
[2019-01-26] MEDS: LIPITOR PO SCH (20:53)
[2019-01-26] MEDS: ZYLOPRIM PO SCH (20:53)
[2019-01-26] MEDS: LEVEMIR SUBQ SCH (20:55)
[2019-01-27] MEDS: DUONEB (A & A) INH SCH ×4 (03:52→19:21)
[2019-01-27] MEDS: PRILOSEC PO SCH (06:49)
[2019-01-27 07:19] LABS: HEMATOCRIT 32.5 % (37.0-47.0); HEMOGLOBIN 9.6 g/dL (12.0-16.0); MCH 28.3 PG (27-31); MCHC 29.5 g/dL (33-37); MCV 95.9 FL (81-99); MPV 9.3 FL (7.4-10.4); RBC 3.39 XMIL (4.2-5.4); RDW 18.2 % (11.5-14.5); WBC 7.86 X1000 (4.8-10.8)
[2019-01-27 07:55] LABS: POTASSIUM 4.3 mmol/L (3.5-5.1)
[2019-01-27] MEDS: PERICOLACE PO SCH ×2 (08:01→20:00)
[2019-01-27] MEDS: VITAMIN D PO SCH (08:01)
[2019-01-27] MEDS: ASPIRIN PO SCH (08:02)
[2019-01-27] MEDS: COREG PO SCH ×2 (08:02→20:00)
[2019-01-27] MEDS: PLETAL PO SCH ×2 (08:02→20:01)
[2019-01-27] MEDS: WELLBUTRIN XL PO SCH (08:02)
[2019-01-27] MEDS: PERCOCET-10 PO PRN ×3 (08:02→23:05)
[2019-01-27] MEDS: FERROUS SULFATE PO SCH (08:02)
[2019-01-27] MEDS: NEURONTIN PO SCH ×4 (08:02→20:00)
[2019-01-27] MEDS: FOLIC ACID PO SCH (08:03)
[2019-01-27] MEDS: GYNE-LOTRIMIN VAGINAL CREAM VAG SCH (08:03)
[2019-01-27] MEDS: LACTULOSE PO SCH ×2 (08:03→20:00)
[2019-01-27] MEDS: AQUAPHOR OINTMENT TOP SCH (08:03)
[2019-01-27] MEDS: ANTIVERT PO SCH ×2 (08:03→20:00)
[2019-01-27] MEDS: SEPTRA DS PO SCH ×2 (08:03→20:00)
[2019-01-27] MEDS: MIRALAX PO SCH (08:04)
--- NOTE | 2019-01-27 10:45 | PROGRESS NOTE ---
DATE: 01/27/2019 SUBJECTIVE: The patient is resting comfortably in bed. No acute events noted overnight. OBJECTIVE: Vital Signs: Temperature 97.9 degrees, blood pressure 160/62, heart rate 80, respirations 16, and O2 saturation 98% on 2 L nasal cannula. General: This is a chronically ill- appearing elderly female lying in bed in no acute distress. Heart: S1, S2. Normal. Lungs: Equal air entry bilaterally. No crackles. No rales. Abdomen: Positive bowel sounds. Soft, nontender, and nondistended. Extremities: No edema. No cyanosis. Neurologic: The patient is alert and oriented x3. LABORATORY: White blood cell count 7.8, hemoglobin 9.6, hematocrit 32, and platelets 418,000. Sodium 140, potassium 4.3, chloride 100, CO2 31, BUN 13, creatinine 1, and glucose 136. ASSESSMENT AND PLAN: 1. Bilateral foot cellulitis secondary to methicillin-resistant Staphylococcus aureus. The patient has completed the antibiotic regimen for the foot infection. 2. Metastatic breast cancer. Aware. 3. Diabetes mellitus type 2. Continue on Levemir and sliding scale insulin. 4. Hypertension. Continue on the current antihypertensive regimen. 5. Disposition. The patient is medically stable for discharge to inpatient rehab once a bed is available. cc: Za Neumann MD MTDD
[2019-01-27] MEDS: LOVENOX SUBQ SCH (16:23)
[2019-01-27] MEDS: BENADRYL PO PRN ×2 (16:29→23:05)
[2019-01-27] MEDS: LEVEMIR SUBQ SCH (20:00)
[2019-01-27] MEDS: LIPITOR PO SCH (20:00)
[2019-01-27] MEDS: ZYLOPRIM PO SCH (20:01)
[2019-01-28] MEDS: DUONEB (A & A) INH SCH ×4 (03:19→21:20)
[2019-01-28] MEDS: PRILOSEC PO SCH (06:03)
[2019-01-28] MEDS: VITAMIN D PO SCH (08:56)
[2019-01-28] MEDS: WELLBUTRIN XL PO SCH (08:57)
[2019-01-28] MEDS: COREG PO SCH ×2 (08:57→20:52)
[2019-01-28] MEDS: PLETAL PO SCH ×2 (08:57→20:52)
[2019-01-28] MEDS: FERROUS SULFATE PO SCH (08:57)
[2019-01-28] MEDS: FOLIC ACID PO SCH (08:57)
[2019-01-28] MEDS: PERCOCET-10 PO PRN ×3 (08:57→20:53)
[2019-01-28] MEDS: NEURONTIN PO SCH ×4 (08:57→20:52)
[2019-01-28] MEDS: ASPIRIN PO SCH (08:57)
[2019-01-28] MEDS: BENADRYL PO PRN ×3 (08:57→20:53)
[2019-01-28] MEDS: GYNE-LOTRIMIN VAGINAL CREAM VAG SCH (08:58)
[2019-01-28] MEDS: AQUAPHOR OINTMENT TOP SCH (08:58)
[2019-01-28] MEDS: ANTIVERT PO SCH ×2 (08:58→20:53)
[2019-01-28] MEDS: LACTULOSE PO SCH ×2 (15:00→20:56)
[2019-01-28] MEDS: PERICOLACE PO SCH ×2 (15:00→20:53)
[2019-01-28] MEDS: MIRALAX PO SCH (15:00)
--- NOTE | 2019-01-28 17:15 | PROGRESS NOTE ---
DATE: 01/28/2019 SUBJECTIVE: Patient is resting comfortable in bed. OBJECTIVE: Vital signs: Temperature 97.7 degrees, pulse 79, respiratory rate 16, blood pressure is 119/45, oxygen saturation is 95%. HEENT: Atraumatic, normocephalic. Cardiovascular: S1, S2. Respiratory: Has evidence of good entry bilaterally. Abdomen: Soft, nontender. No masses felt. Extremities: Wound site with feet dressed. Central nervous system: No obvious focal deficit noted. LABS: Blood glucoses 175. ASSESSMENT AND PLAN: 1. Bilateral foot cellulitis secondary to methicillin-resistant Staphylococcus aureus. The patient has completed antibiotic regimen. Continue local wound care. 2. Metastatic breast cancer. Aware. 3. Type 2 diabetes mellitus. Continue blood sugar monitoring as well as sliding scale insulin. 4. Hypertension. Continue current antihypertensive regimen. 5. Disposition. Patient medically stable for discharge to rehab facility. cc: Amilcar Marie MD
[2019-01-28] MEDS: LOVENOX SUBQ SCH (18:35)
[2019-01-28] MEDS: LEVEMIR SUBQ SCH (20:52)
[2019-01-28] MEDS: ZYLOPRIM PO SCH (20:52)
[2019-01-28] MEDS: LIPITOR PO SCH (20:53)
[2019-01-29] MEDS: PERCOCET-10 PO PRN ×2 (05:17→11:15)
[2019-01-29] MEDS: BENADRYL PO PRN ×2 (05:17→11:15)
[2019-01-29] MEDS: DUONEB (A & A) INH SCH ×2 (05:45→09:37)
[2019-01-29] MEDS: PRILOSEC PO SCH (06:26)
[2019-01-29] MEDS: WELLBUTRIN XL PO SCH (09:49)
[2019-01-29] MEDS: FERROUS SULFATE PO SCH (09:49)
[2019-01-29] MEDS: PLETAL PO SCH (09:49)
[2019-01-29] MEDS: ASPIRIN PO SCH (09:49)
[2019-01-29] MEDS: COREG PO SCH (09:49)
[2019-01-29] MEDS: ANTIVERT PO SCH (09:49)
[2019-01-29] MEDS: VITAMIN D PO SCH (09:49)
[2019-01-29] MEDS: NEURONTIN PO SCH (09:49)
[2019-01-29] MEDS: FOLIC ACID PO SCH (09:50)
[2019-01-29] MEDS: MIRALAX PO SCH (09:50)
[2019-01-29] MEDS: LACTULOSE PO SCH (09:50)
[2019-01-29] MEDS: AQUAPHOR OINTMENT TOP SCH (09:50)
[2019-01-29] MEDS: PERICOLACE PO SCH (09:51)
[2019-01-29] MEDS: GYNE-LOTRIMIN VAGINAL CREAM VAG SCH (09:51)
[2019-01-29 12:41] VITALS: BP 141/54
--- NOTE | 2019-01-29 15:23 | DISCHARGE SUMMARY ---
ADMISSION DATE: 01/12/2019 DISCHARGE DATE: 01/29/2019 PRINCIPAL DIAGNOSIS: Bilateral lower extremity cellulitis/ulcers. SECONDARY DIAGNOSES: 1. Sepsis. 2. Acute hypoxemic respiratory failure. 3. Diabetes mellitus. 4. Hypertension. 5. Metastatic breast cancer. 6. Coronary artery disease. 7. Peripheral neuropathy. 8. Peripheral arterial disease. 9. Dyslipidemia. 10. History of aortic valve replacement. 11. History of systolic heart failure. DISCHARGE MEDICATIONS: Include the following: MiraLAX 17 g daily as needed, Percocet 10 one p.o. every 6 hours as needed, Levemir 12 units subcutaneous at bedtime, DuoNeb 3 mL every 6 hours, omeprazole 40 mg p.o. daily, allopurinol 100 mg p.o. daily, ferrous sulfate 325 mg p.o. once a day, atorvastatin 40 mg p.o. at bedtime, bupropion XL 300 mg p.o. in the morning, Pletal 100 mg p.o. twice a day, NovoLog 15 units subcutaneous 3 times a day, vitamin D 2000 units p.o. in the morning, aspirin 81 mg p.o. daily, Coreg 12.5 mg p.o. twice a day, folic acid/vitamin B complex/vitamin C 400 mcg p.o. daily, Lasix 40 mg p.o. daily, meclizine 12.5 g p.o. twice a day. PROCEDURES DONE DURING THIS HOSPITAL STAY: Head CT on 01/12/2019, pulmonary angiogram on 01/15/2019, extremity venous study on 01/15/2019, a 2D echocardiogram on 01/18/2019. CONSULTATIONS DONE DURING THIS HOSPITAL: 1. Dr. Magdi Brice of infectious disease on 01/13/2019. 2. Dr. Gian Faulkner of general surgery on 01/13/2019. 3. Dr. Eldon Fragoso of pulmonology on 01/20/2019. HOSPITAL COURSE: Ms. Kathy Stinson is a 68-year-old female who was admitted to the hospital with the initial impression of sepsis as well as also ulcers on both lower extremities/cellulitis on both lower extremities. Wound culture from the left foot came back positive for MRSA. Antibiotic management was done by the infectious disease team. Initially, the patient was on vancomycin/cefepime and was later transitioned to oral Bactrim. The patient also received local wound care during the course of the hospital stay. She was evaluated by the pulmonology team with regards to her lung condition. CTA of the pulmonary arteries showed evidence of interstitial and airspace consolidation bilaterally, most consistent with pulmonary edema. There was also notation of small bilateral pleural effusions as well as bibasilar atelectasis. In addition, the patient was found to have mild mediastinal lymphadenopathy. At this time, the patient has done well. PHYSICAL EXAMINATION: During my evaluation today, vital signs are as follows: Temperature 97.6 degrees, pulse 75, respiratory rate 16, blood pressure 148/56, oxygen saturation is 99%. HEENT: Atraumatic and normocephalic. Cardiovascular System: S1 and S2. Respiratory System: Has evidence of good air entry bilaterally. Abdomen: Soft, nontender. No masses felt. Extremities: Have slight erythema in the left lower extremity. Central Nervous System: No obvious focal deficit noted. Wounds: Wound sites of both lower extremities are dressed. LABORATORY DATA: Blood sugar level 147. PLAN: The patient can be discharged to [facility] today. She will need PT and OT evaluation, and also local wound care for her lower extremity lesions. The patient will need to follow up with her primary care physician post discharge and also follow up with Dr. Magdi Brice, infectious disease, Dr. Gian Faulkner, general surgery, and also follow up with her oncologist with regards to her history of breast cancer. cc: Amilcar Marie MD
== END 2019-01-29 14:14 | DRG 871 ==
LOC: SUPCPDRO → ED 14:32 → 3N 20:40 → SUATTDRO 20:40
PROVIDERS: ATTEND Internal Medicine
CPT/HCPCS: 51702; 70450; 71010; 71020; 71045; 71046; 71275; 80048; 80053; 80101; 80202; 80301; 80307; 80324; 80345; 80346; 80353; 80358; 80361; 80365; 81001; 82140; 82550; 82784; 82805; 82948; 83036; 83605; 83735; 83880; 83992; 84100; 84145; 84443; 84484; 85025; 85027; 85610; 85730; 86850; 86900; 86901; 87040; 87070; 87077; 87186; 93005; 93010; 93306; 93970; 94640; 94761; 94799; 96365; 96366; 97110; 97116; 97162; 97530; 99285; 99291; A9270; C8929; G0431; G0434; G0479; G0480; J0690; J0692; J1170; J1650; J1815; J1940; J2405; J2543; J3370; J3480; J7030; J7050; Q9957; Q9967; XXXXX